=== PATIENT | female | born 1965 | race Caucasian/White ===

== ENCOUNTER 2017-01-26 07:37 | Emergency (ER) | payer OTHER ==
[2017-01-26 07:51] VITALS: BP 118/76
--- NOTE | 2017-01-26 08:05 | UC ---
Respiratory Complaint HPI - HPI Summary HPI Summary: sinus pain and pressure x 1 week + nasal congestion , pnd , cough , chest congestion , chest tightness, cough is dry , pain of her left ribs as she coughs - History of Current Complaint Chief Complaint: UCRespiratory Stated Complaint: COUGH CONGESTION Time Seen by Provider: 01/26/17 07:58 Hx Obtained From: Patient Hx Last Menstrual Period: ablation ?: No Onset/Duration: Gradual Onset, Lasting Weeks - 1, Still Present Timing: Constant Severity Initially: Moderate Severity Currently: Moderate Character: Cough: Nonproductive Aggravating Factors: Exertion, Deep Breaths Alleviating Factors: Nothing Associated Signs And Symptoms: Positive: Dyspnea, Chills, Pleuritic Chest Pain, Wheezing, URI, Nasal Congestion, Sinus Discomfort. Negative: Fever - Allergies/Home Medications Allergies/Adverse Reactions: Allergies Allergy/AdvReac Type Severity Reaction Status Date / Time Penicillins Allergy Unknown Verified 01/26/17 07:42 Reaction Details Home Medications: Home Medications Budesonide/Formote 160/4.5(NF) [Symbicort 160/4.5 (NF)] 2 puff INH BID 01/26/17 [History Confirmed 01/26/17] Sertraline* [Zoloft*] 25 mg PO DAILY 01/26/17 [History Confirmed 01/26/17] PMH/Surg Hx/FS Hx/Imm Hx Cardiovascular History: Hypertension Respiratory History: COPD, Asthma GI/ History: Gastroesophageal Reflux - Surgical History Surgical History: Yes Surgery Procedure, Year, and Place: t/a, ear tubes as child. Pelvic mesh - Family History Known Family History: Positive: Hypertension - Social History Alcohol Use: Occasionally Substance Use Type: None Smoking Status (MU): Heavy Every Day Tobacco Smoker Type: Cigarettes Amount Used/How Often: 1ppd Length of Time of Smoking/Using Tobacco: 30 yrs - Immunization History Most Recent Influenza Vaccination: did not have one this year Review of Systems Constitutional: Fatigue Skin: Negative Eyes: Negative ENT: Sore Throat, Nasal Discharge, Sinus Congestion, Sinus Pain/Tenderness Respiratory: Cough Cardiovascular: Negative Gastrointestinal: Negative Is Patient Immunocompromised?: No All Other Systems Reviewed And Are Negative: Yes Physical Exam Triage Information Reviewed: Yes Appearance: Well-Nourished, Pain Distress Vital Signs: Initial Vital Signs Temp 97.7 F 01/26/17 07:46 Pulse 78 01/26/17 07:46 Resp 18 01/26/17 07:46 BP 118/76 01/26/17 07:46 Pulse Ox 97 01/26/17 07:46 Vital Signs Reviewed: Yes Eyes: Positive: Conjunctiva Clear ENT: Positive: Normal ENT inspection, Hearing grossly normal, Pharynx normal, Nasal drainage, Sinus tenderness Neck: Positive: Supple, Nontender, No Lymphadenopathy Respiratory: Positive: Chest non-tender, Decreased breath sounds. Negative: Crackles, Rhonchi, Stridor, Wheezing Cardiovascular: Positive: RRR, No Murmur, Pulses Normal Skin Exam: Normal UC Diagnostic Evaluation - Laboratory O2 Sat by Pulse Oximetry: 97 Respiratory Course/Dx - Differential Dx/Diagnosis Provider Diagnoses: bronchitis. sinusitis Discharge - Discharge Plan Condition: Stable Disposition: HOME Prescriptions: Azithromycin TAB* [Zithromax TAB (Z-ABIMAEL) 250 mg #6 tabs] 2 tab PO .TODAY, THEN 1 DAILY #1 abimael Benzonatate [TESSALON 200 MG CAP] 200 mg PO TID #21 cap predniSONE TAB* [Deltasone TAB*] 40 mg PO DAILY #10 tab Patient Education Materials: Sinusitis (ED), Acute Bronchitis (ED) Forms: *Work Release Referrals: Yadi Horn NP [Primary Care Provider] - 5 Days
== END 2017-01-26 08:14 | disposition home or self-care (01) ==
LOC: UCCORT 07:37
DX: J40 Bronchitis, not specified as acute or chronic (principal); J32.9 Chronic sinusitis, unspecified; I10 Essential (primary) hypertension; J44.9 Chronic obstructive pulmonary disease, unspecified; K21.9 Gastro-esophageal reflux disease without esophagitis; Z88.0 Allergy status to penicillin; F17.210 Nicotine dependence, cigarettes, uncomplicated
CPT/HCPCS: 99212; G0463

== ENCOUNTER 2017-03-09 07:12 | Emergency (ER) | payer OTHER ==
[2017-03-09 07:30] VITALS: BP 129/81
--- NOTE | 2017-03-09 07:46 | ED ---
Throat Pain/Nasal Congestion - HPI Summary HPI Summary: 52 yr old female with the complaint of bilateral maxillary and frontal sinus pressure pain and drainage. She also has bilateral ear pain. Onset over the past week. The patient has recently been treated for sinusitis in January with zithromax. It got better for a while, but she has been exposed to more infectious diseases at work, and now has yellow drainage sinuses, and pressure after a week of symptoms.. - History of Current Complaint Chief Complaint: UCRespiratory Time Seen by Provider: 03/09/17 07:25 - Allergies/Home Medications Allergies/Adverse Reactions: Allergies Allergy/AdvReac Type Severity Reaction Status Date / Time Penicillins Allergy Unknown Verified 03/09/17 07:19 Reaction Details PMH/Surg Hx/FS Hx/Imm Hx Cardiovascular History: Reports: Hx Hypertension Respiratory History: Reports: Hx Asthma, Hx Chronic Obstructive Pulmonary Disease (COPD) - Surgical History Surgery Procedure, Year, and Place: t/a, ear tubes as child. Pelvic mesh Infectious Disease History: No Infectious Disease History: Denies: Traveled Outside the [place] in Last 30 Days - Family History Known Family History: Positive: Hypertension - Social History Occupation: Employed Full-time Alcohol Use: Occasionally Substance Use Type: Reports: None Smoking Status (MU): Heavy Every Day Tobacco Smoker Type: Cigarettes Amount Used/How Often: 1ppd Length of Time of Smoking/Using Tobacco: 30 yrs Review of Systems Positive: Chills Positive: Ear Ache, Nasal Discharge, Other - sinus pressure Positive: Cough All Other Systems Reviewed And Are Negative: Yes Physical Exam Triage Information Reviewed: Yes Vital Signs On Initial Exam: Initial Vitals Temp Pulse Resp BP Pulse Ox 98 F 87 18 129/81 95 03/09/17 07:21 03/09/17 07:21 03/09/17 07:21 03/09/17 07:21 03/09/17 07:21 Vital Signs Reviewed: Yes Appearance: Positive: Well-Appearing, No Pain Distress Skin: Positive: Warm, Skin Color Reflects Adequate Perfusion Head/Face: Positive: Normal Head/Face Inspection Eyes: Positive: EOMI ENT: Positive: Normal ENT inspection, Pharynx normal, Pharyngeal erythema, TM dull, TM red, Sinus tenderness Neck: Positive: Nontender Respiratory/Lung Sounds: Positive: Clear to Auscultation, Breath Sounds Present Cardiovascular: Positive: RRR. Negative: Murmur Abdomen Description: Positive: Nontender Musculoskeletal: Positive: Strength/ROM Intact Neurological: Positive: Sensory/Motor Intact, Alert, Oriented to Person Place, Time, CN Intact II-III Psychiatric: Positive: Normal - Juanita Coma Scale Best Eye Response: 4 - Spontaneous Best Motor Response: 6 - Obeys Commands Best Verbal Response: 5 - Oriented Diagnostics - Vital Signs Vital Signs Temp Pulse Resp BP Pulse Ox 03/09/17 07:21 98 F 87 18 129/81 95 - Laboratory Lab Statement: Any lab studies that have been ordered have been reviewed, and results considered in the medical decision making process. EENT Course/Dx - Course Course Of Treatment: 52 yr old female with sinusitis/OM. She states she takes the erythromycin family of drugs well, and that is what is usually given her. Will Rx Biaxin. - Diagnoses Provider Diagnoses: Sinusitis, Otitis media Discharge - Discharge Plan Condition: Good Disposition: HOME Prescriptions: Clarithromycin TAB* [Biaxin 500 MG TAB*] 500 mg PO BID #20 tab Patient Education Materials: Sinusitis (ED), Otitis Media (ED) Forms: *Work Release Referrals: Yadi Horn NP [Primary Care Provider] - 2 Days
== END 2017-03-09 07:49 | disposition home or self-care (01) ==
LOC: UCCORT 07:12
DX: J32.9 Chronic sinusitis, unspecified (principal); H66.93 Otitis media, unspecified, bilateral; Z88.0 Allergy status to penicillin; I10 Essential (primary) hypertension; J44.9 Chronic obstructive pulmonary disease, unspecified; F17.210 Nicotine dependence, cigarettes, uncomplicated
CPT/HCPCS: 99212; G0463

== ENCOUNTER 2017-08-17 08:25 | Emergency (ER) | payer OTHER ==
[2017-08-17 08:40] VITALS: BP 124/79
[2017-08-17] MEDS ORDERED: Ketorolac INJ* 30 MG/ML 1 ML VIAL IM ONE (08:57)
--- NOTE | 2017-08-17 09:03 | UC ---
Elbow Pain - HPI Summary HPI Summary: 52 yo female bumped her left elbow a few days ago she describes injury as trivial now with about 24 hour hx of progressively worsening pain and swelling - History of Current Complaint Chief Complaint: UCUpperExtremity Stated Complaint: LEFT ELBOW INJURY Time Seen by Provider: 08/17/17 08:53 Hx Obtained From: Patient Hx Last Menstrual Period: ablation Onset/Duration: Days Severity Initially: Mild Severity Currently: Severe Pain Intensity: 8 Pain Scale Used: 0-10 Numeric Location Of Pain: Is Discrete @ - olecranon, Radiates To - left hand Character: Dull, Aching, Throbbing Aggravating Factor(s): Movement, Other - touch Alleviating Factor(s): Rest Associated Signs And Symptoms: Positive: Swelling - Allergies/Home Medications Allergies/Adverse Reactions: Allergies Allergy/AdvReac Type Severity Reaction Status Date / Time Penicillins Allergy Unknown Verified 08/17/17 08:37 Reaction Details Home Medications: Home Medications Fluticasone-Salmeterol 250-50* [Advair Diskus 250-50*] 1 puff PO BID 08/17/17 [ History Confirmed 08/17/17] PMH/Surg Hx/FS Hx/Imm Hx Previously Healthy: Yes Endocrine History: Dyslipidemia Cardiovascular History: Hypertension - Surgical History Surgical History: Yes Surgery Procedure, Year, and Place: t/a, ear tubes as child. Pelvic mesh. carpal tunnel x3 - Family History Known Family History: Positive: Hypertension - Social History Alcohol Use: Occasionally Substance Use Type: None Smoking Status (MU): Heavy Every Day Tobacco Smoker Type: Cigarettes Amount Used/How Often: less than 1 PPD Length of Time of Smoking/Using Tobacco: 30 yrs Household Exposure Type: Cigarettes - Immunization History Most Recent Influenza Vaccination: did not have one this year Review of Systems Constitutional: Negative Skin: Negative Eyes: Negative ENT: Negative Respiratory: Negative Cardiovascular: Negative Gastrointestinal: Negative Genitourinary: Negative Motor: Negative Neurovascular: Negative Musculoskeletal: Arthralgia Neurological: Negative Psychological: Negative Is Patient Immunocompromised?: No All Other Systems Reviewed And Are Negative: Yes Physical Exam Triage Information Reviewed: Yes Appearance: Well-Appearing, No Pain Distress, Well-Nourished Vital Signs: Initial Vital Signs Temp 98.3 F 08/17/17 08:32 Pulse 89 08/17/17 08:32 Resp 16 08/17/17 08:32 BP 124/79 08/17/17 08:32 Pulse Ox 98 08/17/17 08:32 Eyes: Positive: Conjunctiva Clear ENT: Positive: Hearing grossly normal. Negative: Nasal drainage, TMs normal, Trismus, Muffled voice, Hoarse voice Neck: Positive: Supple Respiratory: Positive: Lungs clear, Normal breath sounds, No respiratory distress, No accessory muscle use Cardiovascular: Positive: RRR, No Murmur Musculoskeletal: Positive: ROM Limited @ - left elbow, Edema @ - swollen and tender over left olecranon/warm/skin intact Neurological: Positive: Alert Psychological Exam: Normal Skin Exam: Normal Diagnostics - Radiology No standard instances Xray Interpretation: Positive (See Comments) - small ant fat pad/no fx noted Elbow Pain Course/Dx - Differential Dx/Diagnosis Provider Diagnoses: left olcranon bursitis Discharge - Sign-Out/Discharge Documenting (check all that apply): Discharge/Admit/Transfer - Discharge Plan Condition: Stable Disposition: HOME Patient Education Materials: Elbow Bursitis (ED) Forms: *Work Release Referrals: Althea Lemons PA [Primary Care Provider] - Additional Instructions: I suggest you see an orthopedist as planned take copies of films continue ibuprofen - Billing Disposition and Condition Condition: STABLE Disposition: Home
--- NOTE | 2017-08-17 09:21 | RAD ---
Indication: Elbow injury. 4 views of left elbow demonstrates no fracture. Anterior fat pad sign is noted but this appears to be within normal limits. No definite fracture is noted. IMPRESSION: No definite fracture of the left elbow is noted.
== END 2017-08-17 09:38 | disposition home or self-care (01) ==
LOC: UCCORT 08:25
DX: M70.22 Olecranon bursitis, left elbow (principal); Y93.9 Activity, unspecified; I10 Essential (primary) hypertension; E78.5 Hyperlipidemia, unspecified
CPT/HCPCS: 96372; 99211; G0463; J1885

== ENCOUNTER 2017-12-09 08:00 | Emergency (ER) | payer OTHER ==
[2017-12-09 08:20] VITALS: BP 125/82
--- NOTE | 2017-12-09 08:41 | UC ---
FLU HPI - HPI Summary HPI Summary: Patient presents to urgent care reporting at 6:00 this morning she "felt like she got hit by a truck ". Patient reports body aches. Tactile fever. Congestion. Fatigue. Patient states a coworker had similar symptoms in the last 5 days a work. Patient has nausea vomiting. Patient cut the flu vaccine September. Patient has shortness of breath. Patient has not taken any antipyretics [id number] medication. Patient does have a history of asthma and has inhaler as well as a bladder home. Patient has not been wheezing or coughing and has not used it. Patient does smoke half pack of cigarettes a day. Pt went to work this am but left and came here Patient's medications reviewed this visit. - History of Current Complaint Chief Complaint: UCGeneralIllness Stated Complaint: ACHY SORE THROAT CHILLS HEAD Time Seen by Provider: 12/09/17 08:34 Hx Obtained From: Patient Hx Last Menstrual Period: ablation ?: No Onset/Duration: Sudden Onset Severity Currently: Moderate Severity Initially: Moderate Pain Intensity: 3 - Allergy/Home Medications Allergies/Adverse Reactions: Allergies Allergy/AdvReac Type Severity Reaction Status Date / Time Penicillins Allergy Unknown Verified 12/09/17 08:16 Reaction Details PMH/Surg Hx/FS Hx/Imm Hx Previously Healthy: Yes Endocrine History: Dyslipidemia Cardiovascular History: Hypertension - Surgical History Surgical History: Yes Surgery Procedure, Year, and Place: t/a, ear tubes as child. Pelvic mesh. carpal tunnel x3 - Family History Known Family History: Positive: Hypertension - Social History Occupation: Employed Full-time Alcohol Use: Occasionally Substance Use Type: None Smoking Status (MU): Heavy Every Day Tobacco Smoker Type: Cigarettes Amount Used/How Often: less than 1 PPD Length of Time of Smoking/Using Tobacco: 30 yrs Household Exposure Type: Cigarettes - Immunization History Most Recent Influenza Vaccination: did not have one this year Review of Systems Constitutional: Fever - tactile, Fatigue ENT: Nasal Discharge, Sinus Congestion Respiratory: Cough All Other Systems Reviewed And Are Negative: Yes Physical Exam - Summary Physical Exam Summary: Vital Signs Reviewed: Yes A+Ox3, no distress, tired appearing Eyes: Conjunctiva Clear, NASH. EOM intact and full ENT: Hearing grossly normal TM x 2 clear, turbinates inflammed and boggy, + PND Y, mmoist, uvula midline, no exudate, no erythema Neck: Positive: Supple Respiratory: Positive: No respiratory distress, No accessory muscle use + CTA throughout no w/r no increased WOB Cardiovascular: RRR nl s1, s2 no m/r CBT <2 sec abd soft + BS nt/nd no guarding, no distension Musculoskeletal Exam: ZHU x 4 without difficulty Strength Intact, ROM Intact Neurological: Positive: Alert, + sensation throughout Psychological: Positive: Normal Response To Family Skin: Positive: no rash, no ecchymosis Triage Information Reviewed: Yes Vital Signs: Initial Vital Signs Temp 98.1 F 12/09/17 08:17 Pulse 87 12/09/17 08:17 Resp 16 12/09/17 08:17 BP 125/82 12/09/17 08:17 Pulse Ox 96 12/09/17 08:17 Flu Course/Dx - Course Course Of Treatment: Patient presents with myalgias, cough, sinus congestion, all which started this morning. Patient denies nausea vomiting. Patient reports tactile temperature. No analgesia taken. No antipyretics taken. Patient was sick contact at work with similar. Patient does have a history of asthma but currently no shortness of breath or wheezing. Patient's flu is negative. Discussed with patient symptomatically care. Work note given. Return precautions given patient states she has plenty of her albuterol as well as her MDI. Patient comfortable and agreement with plan. Patient given a work note. - Differential Dx/Diagnosis Provider Diagnoses: vrial syndrome Discharge - Sign-Out/Discharge Documenting (check all that apply): Patient Departure All imaging exams completed and their final reports reviewed: No Studies - Discharge Plan Condition: Stable Disposition: HOME Prescriptions: Mometasone NASAL (NF) [Nasonex (NF)] 1 spray .SEE ORDER DAILY #1 nasal.spr Patient Education Materials: Viral Syndrome (ED) Forms: *Gen. Provider Communication, *Work Release Referrals: Althea Lemons PA [Primary Care Provider] - Additional Instructions: - Stay well hydrated. Drink plenty of non-alcoholic, non-caffinated beverages. - Alternate ibuprofen (Advil, Motrin) 600mg and Tylenol 1000mg every 3 hours for pain or fever. Take with food. Do NOT take for more than 4-5 days. - These infections are spread by secretions - do NOT share eating or drinking utensils - clean items you share with other people such as cell phones, computer mouse, TV remote, computer tablets,etc. Once you start to feel better, change your toothbrush and your pillowcase. - get plenty of restful sleep - humidify the air in the room where you sleep - boil water, run a hot steam shower, vaporizer, cups of water by heat register - okay to take over the counter decongestant and cough medication - use your nasal spray as instructed - use your inhaler or nebulizer as needed for cough or wheeze - contact your doctor or return with questions or concerns - Billing Disposition and Condition Condition: STABLE Disposition: Home
== END 2017-12-09 09:13 | disposition home or self-care (01) ==
LOC: UCCORT 08:00
DX: B34.9 Viral infection, unspecified (principal); F17.210 Nicotine dependence, cigarettes, uncomplicated; I10 Essential (primary) hypertension; E78.5 Hyperlipidemia, unspecified; Z88.0 Allergy status to penicillin; J45.909 Unspecified asthma, uncomplicated
CPT/HCPCS: 99212; G0463

== ENCOUNTER 2017-12-29 07:22 | Emergency (ER) | payer OTHER ==
--- OUTSIDE RECORDS SUMMARY | 2017-12-29 07:31 | XMS REPORT ---
:1965 External Reference #:[id number] Author Organization [facility] 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 Althea Lemons PA Primary Care Physician Unavailable Payers Type Date Identification Numbers Payment Provider Subscriber Commercial Policy Number: [id number] Suryashandarylee Sethi Lebron PayID: [id number] [address] [place] [address] Problems Date Description Provider Status Onset: 05/20/2016 Chronic obstructive lung disease Vladimir Horn FNP Active Onset: 11/17/2014 Blood glucose abnormal Vladimir Horn FNP Active Note: A1C 6.6 01/2013; 6.2 on repeat Onset: 10/31/2010 Essential hypertension Dee Denis NP Active Onset: 10/31/2010 Pure hypercholesterolemia Dee Denis NP Active Onset: 04/17/2011 Excessive and frequent menstruation Dee Denis NP Active Onset: 04/17/2011 Deficiency anemias Dee Denis NP Active Onset: 04/17/2011 Tobacco user Dee Denis NP Active Onset: 05/18/2017 Acute maxillary sinusitis Althea Lemons PA Active Onset: 05/18/2017 Chronic obstructive pulmonary disease w Althea Lemons PA Active (acute) exacerbation Onset: 05/25/2017 Impacted cerumen Althea Lemons PA Active Family History Date Family Member(s) Problem(s) Comments : (age 55 Years) Father due to Heart Attack Father Heart Attack 55 Mother Emphysema Mother Cervical Cancer : (age 56 Years) Paternal Grandmother due to Heart Attack Social History Type Date Description Comments Marital Status Lives With Home Environment Lives With spouse Diet Patient follows no dietary restrictions 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 Right-handed Cigarette Use Current Cigarette Smoker 1 Pack Daily ETOH Use Occasionally consumes alcohol Recreational Drug Use Never Used Drugs Smoking Heavy tobacco smoker (more than 10 cigarettes/day) Daily Caffeine Current Caffeine User coffee Exercise Type/Frequency Exercises regularly Allergies, Adverse Reactions, Alerts Date Description Reaction Status Severity Comments 08/01/2014 Penicillin active 05/04/2017 Penicillins active Medications Medication Date Status Form Strength Qnty SIG Indications Ordering Provider Hydrochlorothiazid 05/18 Active Tablets 25mg 90tab 1 tab by Liv s mouth Pushpa, every day M.D. Albuterol Sulfate 03/11 Active Nebulizer (2.5mg/3M 150ml nebulized J44.1 Liv L) 0.083% every 4 Pushpa, hours as M.D. needed Advair Diskus 11/12 Active Aerosol 250-50mcg 3unit 0ne puff Liv /2016 /Dose s twice a Pushpa, day - M.D. Lovastatin 07/01 Active Tablets 40mg 180ta take 2 J44.9 Benton, bs tablets MD Annia daily F17.210 Ventolin HFA 08/01/2014 Active Aerosol 108(90Base) 1units 2 puffs by satish Peck/Act mouth every Pushpa, 4 hours as M.D. needed Sertraline HCL 08/19/2012 Active Tablets 50mg 90tabs take 1 yola Peck, daily M.D. Buspirone HCL 08/13/2012 Active Tablets 10mg 180tabs take 1 yola Bhardwaj, twice a day Omeprazole Active Capsules DR 20mg 180caps take 1 Benton capsule Annia, twice a day Levalbuterol Active Nebulizer 1.25mg/0.5ML use one Unknown HCL vial in nebulizer every 6 hours as needed for sob/wheezin gGonsalo Diflucan 10/14/2017 Hx Tablets 150mg 2tabs 1 tab by Benton, - mouth Annia, 10/21/2017 today. winter TOUSSAINT repeat in 1 week if needed Shingrix 10/06/2017 Hx Suspension 50mcg 1units administer Z23 Liv Rec vaccine as benji Barrow. w Viet repeat dose in 2-6 months Zyrtec Allergy 09/23/2017 Hx Capsules 10mg 30caps 1 by mouth Jan30Gonsalo Peck, every day 9 Viet Barrow Benzonatate 09/23/2017 Hx Capsules 200mg 30caps 1 tab by Jan06Gonsalo Peck, - mouth three 9 , 10/03/2017 times a day M.D. Diclofenac 08/20/[address] 75mg 60tabs take 1 Pompo, Sodium tablet by Cristofer, mouth twice M.D. daily with food Ciprodex 07/29/2017 Hx Suspension 0.3-0.1% 7.500ml 4 drops Rosalie Peck, - left ear , 09/23/2017 twice daily M.D. for 7 days. Cefdinir 07/29/2017 Hx Capsules 300mg 20caps 1 tab by Rosalie Peck, - mouth twice , 08/08/2017 a day M.D. Doxycycline 06/17/2017 Hx Tablets 100mg 20tabs Take 1 Jan01Gonsalo Peck Hyclate - tablet by , 06/27/2017 mouth every M.D. 12 hours for 10 days for infection Methylpredniso 06/17/2017 Hx TBPK 4mg 21units take Jan01Gonsalo Peck lone - tablets as 06/22/2017 directed-do M.D. se pack Tussin Cough 06/17/2017 Hx Syrup 15mg/5ML 118ml Take 10 ml Jan01Gonsalo Peck, - by mouth , 06/23/2017 every 8 M.D. hours as needed for cough Benzonatate 06/09/2017 Hx Capsules 200mg 30caps 1 tab by Jan06Gonsalo Peck, - mouth three 9 , 06/17/2017 times a day M.D. Nicoderm CQ 05/11/2017 Hx Patches 14mg/24HR 14units apply patch F17. Liv, - 24HR to skin 210 Pushpa, 09/23/2017 daily. M.D. remove each night at bedtime and reapply in the am. Cefdinir 05/11/2017 Hx Capsules 300mg 20caps 1 tab by Jasmina Peck, - mouth twice 00 Pushpa, 05/21/2017 a day M.D. Medrol 05/11/2017 Hx TBPK 4mg 21units take as Nick Peck - directed Pushpa, 05/16/2017 M.D. Diflucan 03/27/2017 Hx Tablets 150mg 2tabs 1 tab by Liv, - mouth Pushpa, 04/03/2017 today. may M.D. repeat in 1 week if needed Cefdinir 03/23/2017 Hx Capsules 300mg 20caps 1 tab by Nick Peck, - mouth twice 1 Pushpa, 04/02/2017 a day M.D. Medrol 03/23/2017 Hx TBPK 4mg 21units take as Nick Peck - directed Pushpa, 03/28/2017 M.D. Prednisone 03/11/2017 Hx Tablets 10mg 21tabs start at 6 Jan44Gonsalo Horn, - tabs by 1 Yadi 03/16/2017 mouth every joy, day and [employer] decrease by one tab each day until gone Nicotine Step 03/11/2017 Hx Patches 21mg/24HR 28units one patch F17. Justina, 1 - 24HR on dry 218 Yadi 06/29/2017 hairless joy, skin of [employer] upper arms, back or abdomen daily Levalbuterol 03/11/2017 Hx Nebulizer 1.25mg/3ML 144ml one via Nick Horn, HCL - nebulizer 1 Yadi 04/20/2017 every 4-6 joy, hours as [employer] needed cough/sob (in place of Albuterol if covered by insurance) Benzonatate 02/06/2017 Hx Capsules 200mg 30caps one tablet R05 Liv, - by mouth Pushpa, 04/20/2017 every 8 M.D. hours as needed cough Lisinopril 2017 Hx Tablets 20mg 30tabs 1 by mouth Justina, - every day Yadi 02/06/2017 joy, [employer] Zithromax 11/30/2015 Hx Tablets 250mg 6tabs take 2 tabs J01. Clune, - by mouth on 80 [facility] 12/05/2015 day 1 then [place], 1 tab by [facility] mouth qddays 2-5 Fluticasone 07/11/2015 Hx Suspension 50mcg/Act 6units Use 2 Clune, Propionate - Sprays In [facility] 11/30/2015 Each [place], Nostril [facility] Twice A Day Lovastatin 07/02/2015 Hx Tablets 40mg 90tabs 1 by mouth Clune, - every day [facility] 07/02/2015 [place], [facility] Atorvastatin 03/28/2015 Hx Tablets 40mg 90tabs 1 by mouth Clune, Calcium - every day [facility] 07/02/2015 *[address] [place], of [facility] lovastatin* Nitrofurantoin 11/20/2014 Hx Capsules [facility]mg [facility] [place] [facility] mouth twice [facility] 12/01/2014 a day x 10 [place], days [facility] Diflucan 11/10/2014 Hx Tablets 150mg 1tabs take 1 by Clune, - mouth [facility] 03/14/2015 [place], [facility] Mupirocin 08/03/2014 Hx Cream 2% [facility]gm [facility] Cal[facility] - affected [facility] 03/14/2015 area twice [place], daily for 2 [facility] weeks. Loratadine 08/01/2014 Hx Tablets 10mg 90tabs 1 by mouth [facility] - [facility] day [facility] 11/17/2014 [facility] Symbicort 02/10/2014 Hx Aerosol 160-4.5mcg/A 18gm 1 puff [place], - ct twice a day [facility] 11/12/2016 [facility] Nystatin 05/30/2013 Hx Suspension 904084Tqbn/M 360unit 5 ml librado Horton, - L s and swallow Charlott 08/01/2014 four times MD mona a day until resolved. Use as denture soak once a day Ventolin HFA 08/09/2012 Hx Aerosol 108mcg/Act 1units 2 puffs Clune, - every 4-6 [facility] 08/01/2014 hours as [place], needed [employer] Flonase 03/15/2012 Hx Suspension 50mcg/Act 16units spray two Liv, sprays in Pushpa, each M.D. 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 Lovastatin Hx Tablets 40mg 30tabs take one Clune, - tablet by Yadi 03/28/2015 mouth every joy, day [employer] Hydrochlorothi Hx Tablets 50mg 90tabs Take 1 Clune, azide - Tablet Yadi 05/18/2017 Daily joy, [employer] Clarithromycin Hx Tablets 500mg Claus, - Perez 04/20/2017 Viet Montoya Cefdinir Hx Capsules 300mg Cristo, - Althea, 05/25/2017 PA Medications Administered in Office Medication Date Status Form Strength Qnty SIG Indications Ordering Provider Depomedrol Administered Injection Bergeron, 40mg/1cc 018 Trisha Del Rosario [facility] Immunizations CPT Code Status Date Vaccine Lot # U-Flu Given 10/06/2017 Influenza,Unspecified [id number] Given 10/06/2017 Influenza Virus Vaccine, Quadrivalent, 36 Mos+, [id number] .[id number] Given 10/06/2017 Pneumococcal Conjugate Vaccine 13 Valent For [id number] Intramuscular Use [id number] Given 10/06/2017 Pneumococcal Conjugate Vaccine 13 Valent For Intramuscular Use [id number] Given 11/17/2014 Influenza Vaccine (Fluzone) Age 3 And Older [id number] Given 06/16/2011 Tdap injection Vital Signs Date Vital Result Comment 12/28/2017 BP Systolic Sitting Left Arm 130 mmHg BP Diastolic Sitting Left Arm 82 mmHg Heart Rate 98 /min Respiratory Rate 18 /min Height 67 inches 5'7" Weight 203.00 lb BMI (Body Mass Index) 31.8 kg/m2 BSA (Body Surface Area) 2.04 m2 [place] body weight in kilograms 61 O2 % BldC Oximetry 94 % 10/06/2017 BP Systolic Sitting Left Arm 118 mmHg BP Diastolic Sitting Left Arm 80 mmHg Body Temperature 98.4 F Heart Rate 98 /min Weight 203.25 lb O2 % BldC Oximetry 94 % 09/23/2017 BP Systolic Sitting Right Arm 120 mmHg BP Diastolic Sitting Right Arm 84 mmHg Body Temperature 97.7 F Heart Rate 94 /min Weight 202.25 lb O2 % BldC Oximetry 93 % 08/28/2017 BP Systolic Sitting Left Arm 131 mmHg BP Diastolic Sitting Left Arm 90 mmHg Body Temperature 97.3 F Heart Rate 89 /min Respiratory Rate 18 /min Height 66.5 inches 5'6.50" Weight 201.00 lb BMI (Body Mass Index) 32.0 kg/m2 BSA (Body Surface Area) 2.02 m2 [place]ford body weight in kilograms 60 O2 % BldC Oximetry 92 % 08/20/2017 BP Systolic 133 mmHg BP Diastolic 86 mmHg Body Temperature 97.9 F Heart Rate 84 /min Respiratory Rate 16 /min Height 66.5 inches 5'6.50" Weight 206.00 lb BMI (Body Mass Index) 32.7 kg/m2 BSA (Body Surface Area) 2.04 m2 [place]ford body weight in kilograms 60 O2 % BldC Oximetry 94 % room air Pain Level 7 07/29/2017 BP Systolic Sitting Right Arm 112 mmHg BP Diastolic Sitting Right Arm 68 mmHg Body Temperature 97.9 F Heart Rate 100 /min Weight 204.38 lb O2 % BldC Oximetry 97 % 06/29/2017 BP Systolic 122 mmHg BP Diastolic 80 mmHg Body Temperature 97.3 F Heart Rate 98 /min Respiratory Rate 18 /min Height 67 inches 5'7" Weight 205.00 lb BMI (Body Mass Index) 32.1 kg/m2 BSA (Body Surface Area) 2.04 m2 [place]ford body weight in kilograms 61 O2 % BldC Oximetry 91 % 06/17/2017 BP Systolic Sitting Left Arm 140 mmHg BP Diastolic Sitting Left Arm 78 mmHg Body Temperature 98.7 F Heart Rate 117 /min Weight 208.25 lb O2 % BldC Oximetry 93 % 06/09/2017 BP Systolic 130 mmHg BP Diastolic 82 mmHg Body Temperature 96.9 F Heart Rate 90 /min Height 67 inches 5'7" Weight 208.00 lb BMI (Body Mass Index) 32.6 kg/m2 BSA (Body Surface Area) 2.06 m2 [place]ford body weight in kilograms 61 O2 % BldC Oximetry 97 % 05/25/2017 BP Systolic Sitting Right Arm 130 mmHg BP Diastolic Sitting Right Arm 82 mmHg Body Temperature 97.4 F Heart Rate 94 /min Weight 203.00 lb O2 % BldC Oximetry 97 % 05/18/2017 BP Systolic Sitting Left Arm 120 mmHg BP Diastolic Sitting Left Arm 64 mmHg Body Temperature 97.7 F Heart Rate 101 /min Weight 204.25 lb O2 % BldC Oximetry 94 % 05/11/2017 BP Systolic Sitting Left Arm 132 mmHg BP Diastolic Sitting Left Arm 74 mmHg Body Temperature 97.3 F Heart Rate 92 /min Weight 206.50 lb O2 % BldC Oximetry 90 % 93 post neb treatment. 04/20/2017 BP Systolic 126 mmHg BP Diastolic 82 mmHg Body Temperature 97.8 F Heart Rate 116 /min Height 67 inches 5'7" Weight 206.00 lb BMI (Body Mass Index) 32.3 kg/m2 BSA (Body Surface Area) 2.05 m2 [place] body weight in kilograms 61 O2 % BldC Oximetry 95 % 03/23/2017 BP Systolic 118 mmHg BP Diastolic 70 mmHg Body Temperature 96.6 F Heart Rate 99 /min Respiratory Rate 18 /min Height 67 inches 5'7" Weight 203.12 lb BMI (Body Mass Index) 31.8 kg/m2 BSA (Body Surface Area) 2.04 m2 [place] body weight in kilograms 61 O2 % BldC Oximetry 92 % 03/16/2017 BP Systolic 142 mmHg BP Diastolic 68 mmHg Body Temperature 97.6 F Heart Rate 104 /min Respiratory Rate 21 /min Height 67 inches 5'7" Weight 198.00 lb BMI (Body Mass Index) 31.0 kg/m2 BSA (Body Surface Area) 2.01 m2 [place] body weight in kilograms 61 O2 % BldC Oximetry 92 % 03/11/2017 BP Systolic Sitting Left Arm 126 mmHg BP Diastolic Sitting Left Arm 76 mmHg Heart Rate 114 /min Respiratory Rate 24 /min Height 67 inches 5'7" Weight 200.00 lb BMI (Body Mass Index) 31.3 kg/m2 BSA (Body Surface Area) 2.02 m2 [place] body weight in kilograms 61 O2 % BldC Oximetry 93 % repeat pulse ox 91 after nebulizer tx 02/06/2017 BP Systolic Sitting Left Arm 120 mmHg BP Diastolic Sitting Left Arm 76 mmHg Body Temperature 98.2 F Heart Rate 92 /min Respiratory Rate 20 /min Height 67 inches 5'7" Weight 204.00 lb BMI (Body Mass Index) 31.9 kg/m2 BSA (Body Surface Area) 2.04 m2 [place] body weight in kilograms 61 O2 % BldC Oximetry 94 % 2017 BP Systolic Sitting Left Arm 140 mmHg BP Diastolic Sitting Left Arm 82 mmHg 10/10/2016 BP Systolic 142 mmHg BP Diastolic 98 mmHg Height 67 inches 5'7" Weight 200.50 lb BMI (Body Mass Index) 31.4 kg/m2 BSA (Body Surface Area) 2.02 m2 [place] body weight in kilograms 61 10/03/2016 BP Systolic 132 mmHg BP Diastolic 88 mmHg Heart Rate 83 /min Height 67 inches 5'7" Weight 199.00 lb BMI (Body Mass Index) 31.2 kg/m2 BSA (Body Surface Area) 2.02 m2 [place] body weight in kilograms 61 11/30/2015 BP Systolic Sitting Left Arm 120 mmHg BP Diastolic Sitting Left Arm 70 mmHg Heart Rate 80 /min Respiratory Rate 17 /min Height 67 inches 5'7" Weight 207.00 lb BMI (Body Mass Index) 32.4 kg/m2 BSA (Body Surface Area) 2.05 m2 [place] body weight in kilograms 61 07/02/2015 BP Systolic 120 mmHg BP Diastolic 78 mmHg Height 70 inches 5'10" Weight 199.38 lb BMI (Body Mass Index) 28.6 kg/m2 BSA (Body Surface Area) 2.08 m2 03/14/2015 BP Systolic Sitting Left Arm 128 mmHg BP Diastolic Sitting Left Arm 76 mmHg Body Temperature 98.9 F Heart Rate 60 /min Respiratory Rate 20 /min Height 67 inches 5'7" Weight 203.00 lb BMI (Body Mass Index) 31.8 kg/m2 BSA (Body Surface Area) 2.04 m2 11/17/2014 BP Systolic 118 mmHg BP Diastolic 76 mmHg Body Temperature 97.9 F Height 67 inches 5'7" Weight 199.38 lb BMI (Body Mass Index) 31.2 kg/m2 BSA (Body Surface Area) 2.02 m2 08/01/2014 BP Systolic Sitting Left Arm 116 mmHg BP Diastolic Sitting Left Arm 68 mmHg Height 67 inches 5'7" Weight 200.00 lb BMI (Body Mass Index) 31.3 kg/m2 BSA (Body Surface Area) 2.02 m2 03/03/2014 BP Systolic 120 mmHg BP Diastolic 74 mmHg Weight 193.00 lb 02/10/2014 BP Systolic 134 mmHg BP Diastolic 80 mmHg Body Temperature 98.7 F Heart Rate 80 /min Respiratory Rate 18 /min Weight 192.00 lb O2 % BldC Oximetry 93 % 05/30/2013 BP Systolic 126 mmHg BP Diastolic 78 mmHg Height 67 inches 5'7" Weight 198.00 lb O2 % BldC Oximetry 95 % on room air 05/19/2013 BP Systolic 118 mmHg BP Diastolic 76 mmHg Body Temperature 98.4 F Height 67 inches 5'7" Weight 188.00 lb O2 % BldC Oximetry 94 % 05/06/2013 BP Systolic 110 mmHg BP Diastolic 70 mmHg Body Temperature 98.5 F Heart Rate 80 /min Height 67 inches 5'7" Weight 191.00 lb O2 % BldC Oximetry 95 % 05/02/2013 BP Systolic 120 mmHg BP Diastolic 80 mmHg Body Temperature 99.2 F Heart Rate 88 /min Height 67 inches 5'7" Weight 188.00 lb O2 % BldC Oximetry 92 % 03/04/2013 BP Systolic 124 mmHg BP Diastolic 72 mmHg Height 67 inches 5'7" Weight 193.00 lb 02/25/2013 BP Systolic 140 mmHg BP Diastolic 84 mmHg Body Temperature 98.3 F Heart Rate 76 /min Height 67 inches 5'7" Weight 190.00 lb O2 % BldC Oximetry 98 % 02/14/2013 BP Systolic 140 mmHg BP Diastolic 84 mmHg Body Temperature 97.9 F Heart Rate 80 /min Height 67 inches 5'7" Weight 189.00 lb O2 % BldC Oximetry 96 % 02/11/2013 BP Systolic 130 mmHg BP Diastolic 82 mmHg Body Temperature 98.6 F Heart Rate 80 /min Height 67 inches 5'7" Weight 187.00 lb 02/11/2013 O2 % BldC Oximetry 96 % 11/26/2012 BP Systolic 124 mmHg BP Diastolic 78 mmHg Body Temperature 98.6 F Height 67 inches 5'7" Weight 189.00 lb 11/17/2012 Height 67 inches 5'7" Weight 189.00 lb 11/12/2012 BP Systolic 132 mmHg BP Diastolic 72 mmHg Height 67 inches 5'7" Weight 193.00 lb 09/03/2012 BP Systolic 110 mmHg BP Diastolic 68 mmHg Height 67 inches 5'7" Weight 186.00 lb 08/19/2012 BP Systolic 152 mmHg BP Diastolic 88 mmHg Height 67 inches 5'7" Weight 191.00 lb 08/09/2012 BP Systolic 136 mmHg BP Diastolic 86 mmHg Height 67 inches 5'7" Weight 190.00 lb 01/23/2012 BP Systolic 122 mmHg BP Diastolic 70 mmHg Height 67 inches 5'7" Weight 190.00 lb 09/05/2011 BP Systolic 110 mmHg BP Diastolic 76 mmHg Height 67 inches 5'7" Weight 191.00 lb 08/15/2011 BP Systolic 124 mmHg BP Diastolic 70 mmHg Height 67 inches 5'7" Weight 193.00 lb 07/17/2011 BP Systolic 118 mmHg BP Diastolic 72 mmHg Body Temperature 98.3 F Height 67 inches 5'7" Weight 195.00 lb 06/16/2011 BP Systolic 120 mmHg BP Diastolic 80 mmHg Height 66 inches 5'6" Weight 197.00 lb 04/25/2011 BP Systolic 118 mmHg BP Diastolic 78 mmHg Body Temperature 98.0 F Height 67 inches 5'7" Weight 196.00 lb 04/21/2011 BP Systolic 124 mmHg BP Diastolic 76 mmHg Body Temperature 98.6 F Height 67 inches 5'7" Weight 197.00 lb 04/17/2011 BP Systolic 140 mmHg BP Diastolic 82 mmHg Body Temperature 98.5 F Heart Rate 78 /min Height 67 inches 5'7" Weight 199.00 lb 04/03/2011 BP Systolic 124 mmHg BP Diastolic 84 mmHg Body Temperature 98.9 F Height 67 inches 5'7" Weight 199.00 lb 03/03/2011 BP Systolic 124 mmHg BP Diastolic 76 mmHg Body Temperature 98.4 F Height 67 inches 5'7" Weight 203.00 lb 01/01/2011 BP Systolic 118 mmHg BP Diastolic 64 mmHg Body Temperature 98.7 F Heart Rate 80 /min Respiratory Rate 18 /min Height 66 inches 5'6" Weight 195.00 lb 12/25/2010 BP Systolic 120 mmHg BP Diastolic 76 mmHg Body Temperature 98.0 F Heart Rate 92 /min Respiratory Rate 18 /min Height 66 inches 5'6" Weight 198.00 lb 10/31/2010 BP Systolic 120 mmHg BP Diastolic 78 mmHg Body Temperature 98.8 F Height 66 inches 5'6" Weight 196.00 lb Results Test Date Test Result H/L Range Note Rapid Influenza A & B 12/09/2017 Influenza A Molecular NEGATIVE Negative 1 Molecular Influenza B Molecular NEGATIVE Negative CBS W/Automated Diff 10/06/2017 White Blood Count 8.8 K/uL 3.1-10.7 2 Red Blood Count 4.80 M/uL 3.90-5.40 2 Hemoglobin 14.5 gm/dL 11.6-15.8 2 Hematocrit 42.0 % 36.0-46.1 2 Mean Cell Volume 87.5 fl 80.9-99.0 2 Mean Corpuscular HGB 30.2 pg 25.9-32.7 2 Mean Corpuscular HGB Conc 34.5 g/dL High 30.8-34.3 2 Platelet Count 267 K/uL 155-360 2 Red Cell Distri Width SD 41.6 fl 3-47 2 Red Cell Distri Width %CV 13.5 % 11.7-14.4 2 Mean Platelet Volume 9.8 fL 8.9-12.4 2 Neut% 64.0 % 40.4-72.8 2 Lymph % 23.5 % 20.0-42.0 2 Mitchell % 8.9 % 4.3-13.2 2 Eo% 3.1 % 0.0-6.6 2 Bas% 0.5 % 0.0-1.1 2 Neut# 5.60 K/uL 1.8-7.0 2 Lymph # 2.06 K/uL 1.0-4.0 2 Mitchell # 0.78 K/uL 0.3-0.9 2 Eos # 0.27 K/uL 0.0-0.5 2 Baso # 0.04 K/uL 0.0-0.1 2 Comprehensive Metabolic Panel 10/06/2017 Glucose 105 mg/dL 74-106 2 BUN 12 mg/dL 7-18 2 Creatinine 0.7 mg/dL 0.6-1.3 2 Glom Filtration Rate, Estimate >60 mL/min >60 2 If >60 mL/min >60 2, 3 BUN/Creat 17.1 ratio 2 Sodium 137 mmol/L 136-145 2 Potassium 3.5 mmol/L 3.5-5.1 2 Chloride 100 mmol/L 98-107 2 Carbon Dioxide 26 mmol/L 21-32 2 Anion Gap 11 mEq/L 8-16 2 Calcium 9.0 mg/dL 8.5-10.1 2 Total Protein 8.1 g/dL 6.4-8.2 2 Albumin 3.9 g/dL 3.4-5.0 2 Globulin 4.2 g/dL 1.9-4.3 2 Alb/Glob 0.9 ratio 2 Bilirubin,Total 0.2 mg/dL 0.2-1.0 2 Sgot/Ast 31 U/L 15-37 2 SGPT/Alt 46 U/L 12-78 2 Alkaline Phosphatase 88 U/L 45-117 2 Laboratory test finding 10/06/2017 Thyroid Stim Hormone 1.58 uIU/mL 0.30- 4.20 2 Glycohemoglobin A1c 10/06/2017 Glycohemoglobin (A1c) 6.1 % 4.2-6.3 2, 4 eAG 128 mg/dL 2 LDL Cholesterol Profile 10/06/2017 Cholesterol 208 mg/dL High <200 2, 5 Triglycerides 300 mg/dL High <150 2, 6 HDL Cholesterol 43 mg/dL >40 2, 7 LDL-Cholesterol 105 mg/dL < 100 2, 8 Serum or plasma alkaline 04/22/2017 Serum or plasma 92 45-117 phosphatase measurement alkaline phosphatase ( measurement (enzymatic activity/volume) Serum or plasma albumin 04/22/2017 Serum or plasma albumin 4.0 3.4-5.0 measurement measurement (mass/volume) (mass/volume) Serum carbon dioxide 04/22/2017 Serum carbon dioxide 30 21-32 measurement measurement RDW RBC Auto-Rto 04/22/2017 RDW RBC Auto-Rto 14.0 11.7-14.4 RDW RBC Auto 04/22/2017 RDW RBC Auto 44.4 3-47 Potassium SerPl-sCnc 04/22/2017 Potassium SerPl-sCnc 4.0 3.5-5.1 Neutrophils/leuk NFr Bld 04/22/2017 Neutrophils/leuk NFr 64.9 40.4-72.8 Auto Bld Auto Neutrophils # Bld Auto 04/22/2017 Neutrophils # Bld Auto 5.62 1.8-7.0 Monocytes/leuk NFr Bld 04/22/2017 Monocytes/leuk NFr Bld 7.7 4.3-13.2 Auto Auto Lymphocytes/leuk NFr Bld 04/22/2017 Lymphocytes/leuk NFr 24.4 20.0-42.0 Auto Bld Auto Serum or plasma 04/22/2017 Serum or plasma 24 15-37 aspartate aspartate aminotransferase measure aminotransferase measurement (enzymatic activity/volume) Serum or plasma calcium 04/22/2017 Serum or plasma calcium 9.3 8.5-10.1 measurement measurement (mass/volume) (mass/volume) Serum or plasma 04/22/2017 Serum or plasma 0.6 0.6-1.3 creatinine measurement creatinine measurement (mass/volum (mass/volume) Serum or plasma folate 04/22/2017 Serum or plasma folate 19.5 High 3.1- 17.5 measurement measurement (mass/volume) (mass/volume) Serum or plasma glucose 04/22/2017 Serum or plasma glucose 110 High 74- 106 measurement measurement (mass/volume) (mass/volume) Serum or plasma protein 04/22/2017 Serum or plasma protein 8.1 6.4-8.2 measurement measurement (mass/volume) (mass/volume) Serum or plasma total 04/22/2017 Serum or plasma total 0.2 0.2-1.0 bilirubin measurement bilirubin measurement (mass/ (mass/volume) Serum or plasma urea 04/22/2017 Serum or plasma urea 12 7-18 nitrogen measurement nitrogen measurement (mass/vo (mass/volume) Serum or plasma vitamin 04/22/2017 Serum or plasma vitamin 420 193-986 B12 measurement B12 measurement (mass/volu (mass/volume) Serum sodium measurement 04/22/2017 Serum sodium 134 Low 136-145 measurement TSH SerPl-aCnc 04/22/2017 TSH SerPl-aCnc 0.84 0.30-4.20 Vitamin B12 And Folate 04/22/2017 Vitamin B12 420 pg/mL 193-986 9 Folic Acid 19.5 ng/mL High 3.1-17.5 9 Reflex add FT3? Y 9 Reflex add FT4? Y 9 Laboratory test finding 04/22/2017 Vitamin D,1,25 33.1 pg/mL 19.9-79.3 9 , 10 Dihydroxy TSH Reflex FT4 And/Or 04/22/2017 Thyroid Stim Hormone 0.84 uIU/mL 0.30- 4.20 9 FT3 Reflex add FT3? Y 9 Reflex add FT4? Y 9 Comprehensive Metabolic Panel 04/22/2017 Glucose 110 mg/dL High 74-106 9 BUN 12 mg/dL 7-18 9 Creatinine 0.6 mg/dL 0.6-1.3 9 Glom Filtration Rate, Estimate >60 mL/min >60 9 If >60 mL/min >60 9, 11 BUN/Creat 20.0 ratio 9 Sodium 134 mmol/L Low 136-145 9 Potassium 4.0 mmol/L 3.5-5.1 9 Chloride 100 mmol/L 98-107 9 Carbon Dioxide 30 mmol/L 21-32 9 Anion Gap 4 mEq/L Low 8-16 9 Calcium 9.3 mg/dL 8.5-10.1 9 Total Protein 8.1 g/dL 6.4-8.2 9 Albumin 4.0 g/dL 3.4-5.0 9 Globulin 4.1 g/dL 1.9-4.3 9 Alb/Glob 1.0 ratio 9 Bilirubin,Total 0.2 mg/dL 0.2-1.0 9 Sgot/Ast 24 U/L 15-37 9 SGPT/Alt 33 U/L 12-78 9 Alkaline Phosphatase 92 U/L 45-117 9 Reflex add FT3? Y 9 Reflex add FT4? Y 9 CBS W/Automated Diff 04/22/2017 White Blood Count 8.7 K/uL 3.1-10.7 9 Red Blood Count 4.90 M/uL 3.90-5.40 9 Hemoglobin 14.8 gm/dL 11.6-15.8 9 Hematocrit 43.4 % 36.0-46.1 9 Mean Cell Volume 88.6 fl 80.9-99.0 9 Mean Corpuscular HGB 30.2 pg 25.9-32.7 9 Mean Corpuscular HGB Conc 34.1 g/dL 30.8-34.3 9 Platelet Count 276 K/uL 155-360 9 Red Cell Distri Width SD 44.4 fl 3-47 9 Red Cell Distri Width %CV 14.0 % 11.7-14.4 9 Mean Platelet Volume 10.0 fL 8.9-12.4 9 Neut% 64.9 % 40.4-72.8 9 Lymph % 24.4 % 20.0-42.0 9 Mitchell % 7.7 % 4.3-13.2 9 Eo% 2.5 % 0.0-6.6 9 Bas% 0.5 % 0.0-1.1 9 Neut# 5.62 K/uL 1.8-7.0 9 Lymph # 2.11 K/uL 1.0-4.0 9 Mitchell # 0.67 K/uL 0.3-0.9 9 Eos # 0.22 K/uL 0.0-0.5 9 Baso # 0.04 K/uL 0.0-0.1 9 Alt SerPl-cCnc 04/22/2017 Alt SerPl-cCnc 33 12-78 Albumin/Glob SerPl 04/22/2017 Albumin/Glob SerPl 1.0 Anion Gap SerPl-sCnc 04/22/2017 Anion Gap SerPl-sCnc 4 Low 8-16 Automated blood 04/22/2017 Automated blood 0.04 0.0-0.1 basophil count basophil count (count/volume) (count/volume) Automated blood 04/22/2017 Automated blood 0.22 0.0-0.5 eosinophil count eosinophil count Automated blood 04/22/2017 Automated blood 43.4 36.0-46.1 hematocrit (volume hematocrit (volume fraction) fraction) Automated blood 04/22/2017 Automated blood 2.11 1.0-4.0 lymphocyte count lymphocyte count (number/volume) (number/volume) Automated blood 04/22/2017 Automated blood 276 155-360 platelet count platelet count Automated blood 04/22/2017 Automated blood 10.0 8.9-12.4 platelet mean volume platelet mean volume measurement measurement Automated erythrocyte 04/22/2017 Automated erythrocyte 30.2 25.9-32.7 mean corpuscular mean corpuscular hemoglobin hemoglobin (mass per erythrocyte) Automated erythrocyte 04/22/2017 Automated erythrocyte 34.1 30.8-34.3 mean corpuscular mean corpuscular hemoglobin hemoglobin concentration measurement (mass/volume) Automated erythrocyte 04/22/2017 Automated erythrocyte 88.6 80.9-99.0 mean corpuscular mean corpuscular volume volume BUN/Creat SerPl 04/22/2017 BUN/Creat SerPl 20.0 Basophils/leuk NFr 04/22/2017 Basophils/leuk NFr 0.5 0.0-1.1 Bld Auto Bld Auto Blood erythrocytes 04/22/2017 Blood erythrocytes 4.90 3.90-5.40 automated count automated count (number/volume) (number/volume) Blood hemoglobin 04/22/2017 Blood hemoglobin 14.8 11.6-15.8 measurement measurement (mass/volume) (mass/volume) Blood leukocytes 04/22/2017 Blood leukocytes 8.7 3.1-10.7 automated count automated count (number/volume) (number/volume) Globulin Ser 04/22/2017 Globulin Ser 4.1 1.9-4.3 Calc-mCnc Calc-mCnc Eosinophil/leuk NFr 04/22/2017 Eosinophil/leuk NFr 2.5 0.0-6.6 Bld Auto Bld Auto Chloride SerPl-sCnc 04/22/2017 Chloride [facility] 100 98-107 Blood monocytes 04/22/2017 Blood monocytes 0.67 0.3-0.9 automated count automated count (number/volume) (number/volume) LDL Cholesterol 10/03/2016 Cholesterol 230 mg/dL High <200 12, 13 Profile Triglycerides 258 mg/dL High <150 12, 14 HDL Cholesterol 47 mg/dL >40 12, 15 LDL-Cholesterol 131 mg/dL < 100 12, 16 CBS W/Automated Diff 10/03/2016 White Blood Count 9.2 K/uL 3.1-10.7 12 Red Blood Count 4.98 M/uL 3.90-5.40 12 Hemoglobin 15.0 gm/dL 11.6-15.8 12 Hematocrit 43.9 % 36.0-46.1 12 Mean Cell Volume 88.2 fl 80.9-99.0 12 Mean Corpuscular HGB 30.1 pg 25.9-32.7 12 Mean Corpuscular HGB Conc 34.2 g/dL 30.8-34.3 12 Platelet Count 259 K/uL 150-400 12 Red Cell Distri Width SD 44.0 fl 3-47 12 Red Cell Distri Width %CV 13.9 % 11.7-14.4 12 Mean Platelet Volume 9.9 fL 8.9-12.4 12 Neut% 64.7 % 40.4-72.8 12 Lymph % 23.9 % 20.0-42.0 12 Mitchell % 8.8 % 4.3-13.2 12 Eo% 2.3 % 0.0-6.6 12 Bas% 0.3 % 0.0-1.1 12 Neut# 5.94 K/uL 1.8-7.0 12 Lymph # 2.20 K/uL 1.0-4.0 12 Mitchell # 0.81 K/uL 0.3-0.9 12 Eos # 0.21 K/uL 0.0-0.5 12 Baso # 0.03 K/uL 0.0-0.1 12 Glycohemoglobin A1c 10/03/2016 Glycohemoglobin (A1c) 6.1 % 4.2-6.3 12, 17 eAG 128 mg/dL 12 Comprehensive Metabolic Panel 10/03/2016 Glucose 104 mg/dL 74-106 12 BUN 12 mg/dL 7-18 12 Creatinine 0.7 mg/dL 0.6-1.3 12 Glom Filtration Rate, Estimate >60 mL/min >60 12 If >60 mL/min >60 12, 18 BUN/Creat 17.1 ratio 12 Sodium 137 mmol/L 136-145 12 Potassium 3.7 mmol/L 3.5-5.1 12 Chloride 99 mmol/L 98-107 12 Carbon Dioxide 31 mmol/L 21-32 12 Anion Gap 7 mEq/L Low 8-16 12 Calcium 9.0 mg/dL 8.5-10.1 12 Total Protein 8.2 g/dL 6.4-8.2 12 Albumin 4.0 g/dL 3.4-5.0 12 Globulin 4.2 g/dL 1.9-4.3 12 Alb/Glob 1.0 ratio 12 Bilirubin,Total 0.4 mg/dL 0.2-1.0 12 Sgot/Ast 24 U/L 15-37 12 SGPT/Alt 42 U/L 12-78 12 Alkaline Phosphatase 92 U/L 45-117 12 Laboratory test finding 01/15/2015 Vitamin D,1,25 Dihydroxy 39.2 pg/mL 19.9-79.3 19 Microalbumin,Random Urine 8.3 mg/L < 20.0 LDL Cholesterol Profile 01/15/2015 Cholesterol 253 mg/dL High <200 20 Triglycerides 384 mg/dL High <150 21 HDL Cholesterol 41 mg/dL >40 22 LDL-Cholesterol 135 mg/dL < 100 23 Glycohemoglobin A1c 01/15/2015 Glycohemoglobin (A1c) 5.7 % 4.2-6.3 24 eAG 117 mg/dL Comprehensive Metabolic Panel 01/15/2015 Glucose 107 mg/dL High 74-106 BUN 12 mg/dL 7-18 Creatinine 0.7 mg/dL 0.6-1.3 Glom Filtration Rate, Estimate >60 mL/min >60 If >60 mL/min >60 25 BUN/Creat 17.1 ratio Sodium 138 mmol/L 136-145 Potassium 4.0 mmol/L 3.5-5.1 Chloride 102 mmol/L 98-107 Carbon Dioxide 29 mmol/L 21-32 Anion Gap 7 mEq/L Low 8-16 Calcium 9.3 mg/dL 8.5-10.1 Total Protein 7.6 g/dL 6.4-8.2 Albumin 3.9 g/dL 3.4-5.0 Globulin 3.7 g/dL 1.9-4.3 Alb/Glob 1.1 ratio Bilirubin,Total 0.4 mg/dL 0.2-1.0 Sgot/Ast 23 U/L 15-37 SGPT/Alt 44 U/L 12-78 Alkaline Phosphatase 94 U/L 45-117 Affirm 11/17/2014 Trichomonas vaginalis Negative [Negative] Gardnerella vaginalis Negative [Negative] Lynda species Negative [Negative] Laboratory test finding 11/17/2014 Urine Culture See Note 26 LDL Cholesterol Profile 02/21/2014 Cholesterol 233 mg/dL < 200 27 HDL Cholesterol 46 mg/dL > 40 28 LDL-Cholesterol 126 mg/dL < 100 29 Triglycerides 305 mg/dL < 150 30 Glycohemoglobin A1c 02/21/2014 Glycohemoglobin (A1c) 6.2 % 4.2-6.3 31 eAG 131 mg/dL Comprehensive Metabolic Panel 02/21/2014 Alb/Glob 1.1 ratio Albumin 3.9 g/dL 3.4-5.0 Alkaline Phosphatase 89 U/L 45-117 Anion Gap 8 mEq/L 8-16 BUN 14 mg/dL 7-18 BUN/Creat 15.5 ratio Bilirubin,Total 0.3 mg/dL 0.2-1.0 Calcium 9.1 mg/dL 8.5-10.1 Carbon Dioxide 32 mmol/L 21-32 Chloride 102 mmol/L 98-107 Creatinine 0.9 mg/dL 0.6-1.3 Globulin 3.5 g/dL 1.9-4.3 Glom Filtration Rate, Estimate >60 mL/min >60 Glucose 87 mg/dL 74-106 If >60 mL/min >60 32 Potassium 3.8 mmol/L 3.5-5.1 SGPT/Alt 34 U/L 12-78 Sgot/Ast 19 U/L 15-37 Sodium 138 mmol/L 136-145 Total Protein 7.4 g/dL 6.4-8.2 Laboratory test 02/21/2014 Microalbumin,Random Urine < 5.0 mg/L < 20.0 finding Laboratory test 02/04/2013 Hemoglobin A1c 6.6 % High Less than 33 finding 6.0 TSH (Thyroid Stimulating Horm) 1.32 miu/mL 0.34-5.60 CBC Auto Diff 02/04/2013 Abs Basophils 0.1 10^3/uL 0-0.2 Abs Eosinophils 0.2 10^3/uL 0-0.6 Abs Lymphocytes 1.9 10^3/uL 1.0-4.8 Abs Monocytes 0.8 10^3/uL 0-0.8 Abs Neutrophils 4.8 10^3/uL 1.5-7.7 Abs Nucleated RBC 0 10^3/uL Basophil % 1.3 % 0-2 Eosinophil % 2.2 % 0-6 Granulocyte % 62.0 % 38-83 Hematocrit 41 % 35-47 Hemoglobin 14.1 g/dL 12.0-16.0 Lymphocyte % 24.0 % Low 25-47 Mean Corpuscular HGB Conc 34 g/dL 31-36 Mean Corpuscular Hemoglobin 31 pg 27-31 Mean Corpuscular Volume 89 fL 80-97 Mean Platelet Volume 8 um3 7.4-10.4 Monocyte % 10.5 % High 1-9 Nucleated Red Blood Cells % 0 Platelet Count 234 10^3/uL 150-450 Red Blood Count 4.61 10^6/uL 4.0-5.4 Red Cell Distribution Width 13 % 10.5-15 White Blood Count 7.8 10^3/uL 4.8-10.8 Comp Metabolic Panel 02/04/2013 Albumin 4.0 g/dL 3.6-5.4 Albumin/Globulin Ratio 1.5 1-3 Alkaline Phosphatase 78 U/L 30-110 Alt 36 U/L 14-54 Anion Gap 9.0 mmol/L 2-11 Ast 29 U/L 12-42 BUN/Creatinine Ratio 16.7 8-20 Blood Urea Nitrogen 10 mg/dL 6-24 Calcium 9.5 mg/dL 8.1-9.9 Chloride 99 mmol/L Low 101-111 Co2 Carbon Dioxide 29.0 mmol/L 22-32 Creatinine 0.60 mg/dL 0.50-1.40 Egfr 138.4 >60 34 Egfr Non- 107.6 >60 Globulin 2.7 g/dL 2-4 Glucose 91 mg/dL 70-100 Potassium 4.1 mmol/L 3.5-5.0 Sodium 137 mmol/L 133-145 Total Bilirubin 0.6 mg/dL 0.4-1.5 Total Protein 6.7 g/dL 6.2-8.1 Lipid Profile (Trig/Chol/HDL) 02/04/2013 Cholesterol 206 mg/dL High Less than 200 Cholesterol/HDL Ratio 3.6 Average 1-4.44 HDL Cholesterol 57 mg/dL 40-60 35 LDL Cholesterol 120.4 High Less Than 100 36 Triglycerides 143 mg/dL 40-200 Laboratory test finding 11/03/2012 Hemoglobin A1c 6.3 % High Less than 6.0 37 TSH (Thyroid Stimulating Horm) 1.14 miu/mL 0.34-5.60 CBC Auto Diff 11/03/2012 Abs Basophils 0.1 10^3/uL 0-0.2 Abs Eosinophils 0.2 10^3/uL 0-0.6 Abs Lymphocytes 2.3 10^3/uL 1.0-4.8 Abs Monocytes 0.8 10^3/uL 0-0.8 Abs Neutrophils 6.3 10^3/uL 1.5-7.7 Abs Nucleated RBC 0 10^3/uL Basophil % 0.9 % 0-2 Eosinophil % 2.4 % 0-6 Granulocyte % 64.8 % 38-83 Hematocrit 44 % 35-47 Hemoglobin 14.7 g/dL 12.0-16.0 Lymphocyte % 23.3 % Low 25-47 Mean Corpuscular HGB Conc 34 g/dL 31-36 Mean Corpuscular Hemoglobin 30 pg 27-31 Mean Corpuscular Volume 90 fL 80-97 Mean Platelet Volume 8 um3 7.4-10.4 Monocyte % 8.6 % 1-9 Nucleated Red Blood Cells % 0 Platelet Count 265 10^3/uL 150-450 Red Blood Count 4.86 10^6/uL 4.0-5.4 Red Cell Distribution Width 13 % 10.5-15 White Blood Count 9.7 10^3/uL 4.8-10.8 Comp Metabolic Panel 11/03/2012 Albumin 4.1 g/dL 3.6-5.4 Albumin/Globulin Ratio 1.6 1-3 Alkaline Phosphatase 77 U/L 30-110 Alt 42 U/L 14-54 Anion Gap 10.0 mmol/L 2-11 Ast 32 U/L 12-42 BUN/Creatinine Ratio 18.3 8-20 Blood Urea Nitrogen 11 mg/dL 6-24 Calcium 10.2 mg/dL High 8.1-9.9 Chloride 98 mmol/L Low 101-111 Co2 Carbon Dioxide 27.0 mmol/L 22-32 Creatinine 0.60 mg/dL 0.50-1.40 Egfr 139.0 >60 38 Egfr Non- 108.1 >60 Globulin 2.6 g/dL 2-4 Glucose 107 mg/dL High 70-100 Potassium 4.0 mmol/L 3.5-5.0 Sodium 135 mmol/L 133-145 Total Bilirubin 0.6 mg/dL 0.4-1.5 Total Protein 6.7 g/dL 6.2-8.1 Lipid Profile (Trig/Chol/HDL) 11/03/2012 Cholesterol 288 mg/dL High Less than 200 Cholesterol/HDL Ratio 5.2 Average High 1-4.44 HDL Cholesterol 55 mg/dL 40-60 39 LDL Cholesterol 188.0 High Less Than 100 40 Triglycerides 225 mg/dL High 40-200 Laboratory test finding 08/10/2012 Hemoglobin A1c 6.2 % High Less than 6.0 41 TSH (Thyroid Stimulating Horm) 1.37 miu/mL 0.34-5.60 CBC Auto Diff 08/10/2012 Abs Basophils 0 10^3/uL 0-0.2 Abs Eosinophils 0.1 10^3/uL 0-0.6 Abs Lymphocytes 2.2 10^3/uL 1.0-4.8 Abs Monocytes 0.6 10^3/uL 0-0.8 Abs Neutrophils 5.3 10^3/uL 1.5-7.7 Abs Nucleated RBC 0 10^3/uL Basophil % 0.5 % 0-2 Eosinophil % 1.7 % 0-6 Granulocyte % 63.8 % 38-83 Hematocrit 43 % 35-47 Hemoglobin 14.4 g/dL 12.0-16.0 Lymphocyte % 26.6 % 25-47 Mean Corpuscular HGB Conc 33 g/dL 31-36 Mean Corpuscular Hemoglobin 30 pg 27-31 Mean Corpuscular Volume 91 fL 80-97 Mean Platelet Volume 8 um3 7.4-10.4 Monocyte % 7.4 % 1-9 Nucleated Red Blood Cells % 0 Platelet Count 279 10^3/uL 150-450 Red Blood Count 4.78 10^6/uL 4.0-5.4 Red Cell Distribution Width 14 % 10.5-15 White Blood Count 8.4 10^3/uL 4.8-10.8 Comp Metabolic Panel 08/10/2012 Albumin 4.2 g/dL 3.6-5.4 Albumin/Globulin Ratio 1.4 1-3 Alkaline Phosphatase 70 U/L 30-110 Alt 41 U/L 14-54 Anion Gap 8.0 mmol/L 2-11 Ast 31 U/L 12-42 BUN/Creatinine Ratio 15.0 8-20 Blood Urea Nitrogen 9 mg/dL 6-24 Calcium 9.8 mg/dL 8.1-9.9 Chloride 101 mmol/L 101-111 Co2 Carbon Dioxide 29.0 mmol/L 22-32 Creatinine 0.60 mg/dL 0.50-1.40 Egfr 139.0 >60 42 Egfr Non- 108.1 >60 Globulin 3.0 g/dL 2-4 Glucose 98 mg/dL 70-100 Potassium 4.3 mmol/L 3.5-5.0 Sodium 138 mmol/L 133-145 Total Bilirubin 0.6 mg/dL 0.4-1.5 Total Protein 7.2 g/dL 6.2-8.1 Vitamin D, 25 Hydroxy 08/10/2012 25-Hydroxy Vitamin D Total 40 ng/mL 43 25-Hydroxy Vitamin D2 <4.0 ng/mL 25-Hydroxy Vitamin D3 40 ng/mL Lipid Profile (Trig/Chol/HDL) 08/10/2012 Cholesterol 214 mg/dL High Less than 200 Cholesterol/HDL Ratio 3.9 Average 1-4.44 HDL Cholesterol 55 mg/dL 40-60 44 LDL Cholesterol 117.8 High Less Than 100 45 Triglycerides 206 mg/dL High 40-200 Lipid Profile (Trig/Chol/HDL) 01/23/2012 Cholesterol 218 mg/dL High Less than 200 Cholesterol/HDL Ratio 4.2 AVERAGE 1-4.44 HDL Cholesterol 52 mg/dL 40-60 46 LDL Cholesterol 141.0 mg/dL High Less Than 100 47 Triglycerides 125 mg/dL 40-200 Comp Metabolic Panel 01/23/2012 Albumin 4.0 GM/DL 3.6-5.4 Albumin/Globulin Ratio 1.7 1-3 Alkaline Phosphatase 66 U/L 30-110 Alt 30 U/L 14-54 Anion Gap 8.0 mmol/L 2-11 Ast 23 U/L 12-42 BUN/Creatinine Ratio 23.3 High 8-20 Blood Urea Nitrogen 14 mg/dL 6-24 Calcium 9.9 mg/dL 8.1-9.9 Chloride 102 mmol/L 101-111 Co2 Carbon Dioxide 28.0 mmol/L 22-32 Creatinine 0.60 mg/dL 0.50-1.40 Egfr 139.0 >60 48 Egfr Non- 108.1 >60 Globulin 2.4 GM/DL 2-4 Glucose 102 mg/dL High 70-100 Potassium 3.5 mmol/L 3.5-5.0 Sodium 138 mmol/L 133-145 Total Bilirubin 0.6 mg/dL 0.4-1.5 Total Protein 6.4 GM/DL 6.2-8.1 CBC Auto Diff 01/23/2012 Abs Basophils 0.1 10^3/uL 0-0.2 Abs Eosinophils 0.2 10^3/uL 0-0.6 Abs Lymphocytes 2.5 10^3/uL 1.0-4.8 Abs Monocytes 0.7 10^3/uL 0-0.8 Abs Neutrophils 4.4 10^3/uL 1.5-7.7 Abs Nucleated RBC 0 10^3/uL Basophil % 1.0 % 0-2 Eosinophil % 2.6 % 0-6 Granulocyte % 55.8 % 38-83 Hematocrit 41 % 35-47 Hemoglobin 13.6 g/dL 12.0-16.0 Lymphocyte % 31.7 % 25-47 Mean Corpuscular HGB Conc 34 g/dL 31-36 Mean Corpuscular Hemoglobin 31 pg 27-31 Mean Corpuscular Volume 91 fL 80-97 Mean Platelet Volume 8 um3 7.4-10.4 Monocyte % 8.9 % 1-9 Nucleated Red Blood Cells % 0 Platelet Count 258 10^3/uL 150-450 Red Blood Count 4.47 10^6/uL 4.0-5.4 Red Cell Distribution Width 13 % 10.5-15 White Blood Count 7.9 10^3/uL 4.8-10.8 Laboratory test finding 01/23/2012 Hemoglobin A1c 5.9 % Less than 6.0 49 TSH (Thyroid Stimulating Horm) 1.20 MIU/ML 0.34-5.60 Lipid Profile (Trig/Chol/HDL) 09/19/2011 Cholesterol 196 mg/dL Less Than 200 50 Cholesterol/HDL Ratio 5.03 AVERAGE High 1-4.44 High Density Lipoprotein 39 mg/dL Low 40-60 51 Low Density Lipoprotein 116 mg/dL High Less Than 100 52 Triglyceride 205 mg/dL High 40-200 Lipid Profile (Trig/Chol/HDL) 08/18/2011 Cholesterol 223 mg/dL High Less Than 200 53 Cholesterol/HDL Ratio 4.65 AVERAGE High 1-4.44 High Density Lipoprotein 48 mg/dL 40-60 54 Low Density Lipoprotein 119 mg/dL High Less Than 100 55 Triglyceride 281 mg/dL High 40-200 Comp Metabolic Panel 08/18/2011 Albumin 4.1 GM/DL 3.6-5.4 Albumin/Globulin Ratio 1.4 1-3 Alkaline Phosphatase 69 U/L 30-110 Alt (SGPT) 33 U/L 14-54 Anion Gap 8.0 mmol/L 2-11 56 Ast (Sgot) 27 U/L 12-42 BUN 13 mg/dL 6-24 BUN/Creatinine Ratio 18.6 8-20 Bilirubin Total 0.5 mg/dL 0.4-1.5 57 Calcium 9.5 mg/dL 8.1-9.9 Chloride 98 mmol/L Low 101-111 Co2 (Carbon Dioxide) 27.0 mmol/L 22-32 Creatinine 0.7 mg/dL 0.50-1.40 Globulin 2.9 GM/DL 2-4 Glucose 101 mg/dL High 70-100 One Over Creatinine 1.42 Potassium 3.6 mmol/L 3.5-5.0 Sodium 133 mmol/L Low 135-145 Total Protein 7.0 GM/DL 6.2-8.1 eGFR 116.9 > 60 58 eGFR Non- 90.9 > 60 CBC Auto Diff 08/18/2011 Abs Basophils 0 0-0.2 Abs Eosinophils 0.2 0-0.6 Abs Lymphs 2.5 1.0-4.8 Abs Mononuclear 0.7 0-0.8 Absolute Neutrophil Count 6.3 1.5-7.7 Basophil % 0.4 % 0-2 Eosinophil % 1.9 % 0-6 Gran % 65.1 % 38-83 Hematocrit 40 % 35-47 Hemoglobin 14.0 g/dL 12.0-16.0 Lymph % 25.2 % 25-47 Mean Corpuscular HGB Cone 35 g/dL 32-36 Mean Corpuscular Hemoglob 30 pg 27-31 Mean Corpuscular Volume 87 um3 79-97 Mean Platelet Volume 7.9 um3 7.4-10.4 Mononuclear % 7.4 % 1-9 Platelet Count 307 CUMM 150-450 Red Cell Count 4.65 CUMM 4.2-5.4 Redcell Distribution WDTH 15 % 10.5-15 White Blood Count 9.8 CUMM 4.8-10.8 Laboratory test finding 08/18/2011 Hemoglobin A1c 6.3 % High Less Than 6.0 59 Laboratory test finding 05/22/2011 Hemoglobin A1c 6.1 % High Less Than 6.0 60 Comp Metabolic Panel 05/22/2011 Albumin 4.1 GM/DL 3.6-5.4 Albumin/Globulin Ratio 1.3 1-3 Alkaline Phosphatase 65 U/L 30-110 Alt (SGPT) 31 U/L 14-54 Anion Gap 10.0 mmol/L 2-11 61 Ast (Sgot) 26 U/L 12-42 BUN 17 mg/dL 6-24 BUN/Creatinine Ratio 28.3 High 8-20 Bilirubin Total 0.4 mg/dL 0.4-1.5 62 Calcium 9.2 mg/dL 8.1-9.9 Chloride 100 mmol/L Low 101-111 Co2 (Carbon Dioxide) 27.0 mmol/L 22-32 Creatinine 0.6 mg/dL 0.50-1.40 Globulin 3.2 GM/DL 2-4 Glucose 99 mg/dL 70-100 One Over Creatinine 1.66 Potassium 3.9 mmol/L 3.5-5.0 Sodium 137 mmol/L 135-145 Total Protein 7.3 GM/DL 6.2-8.1 eGFR 139.7 > 60 63 eGFR Non- 108.6 > 60 Lipid Profile (Trig/Chol/HDL) 05/22/2011 Cholesterol 234 mg/dL High Less Than 200 64 Cholesterol/HDL Ratio 3.90 AVERAGE 1-4.44 High Density Lipoprotein 60 mg/dL 40-60 65 Low Density Lipoprotein 139 mg/dL High Less Than 100 66 Triglyceride 173 mg/dL 40-200 Vitamin D, 25 Hydroxy 05/22/2011 25-Hydroxy Vitamin D Total 42 ng/mL () 67 25-Hydroxy Vitamin D2 11 ng/mL () 25-Hydroxy Vitamin D3 31 ng/mL () Laboratory test finding 03/27/2011 Hemoglobin A1c 6.3 % High Less Than 6.0 68 TSH 1.65 MIU/ML 0.34-5.60 CBC Auto Diff 03/27/2011 Hematocrit 36 % 35-47 Hemoglobin 12.9 g/dL 12.0-16.0 Mean Corpuscular HGB Cone 36 g/dL 32-36 Mean Corpuscular Hemoglob 29 pg 27-31 Mean Corpuscular Volume 80 um3 79-97 Mean Platelet Volume 8.6 um3 7.4-10.4 69 Platelet Count 270 CUMM 150-450 Red Cell Count 4.51 CUMM 4.2-5.4 Redcell Distribution WDTH 17 % High 10.5-15 White Blood Count 9.8 CUMM 4.8-10.8 Comp Metabolic Panel 03/27/2011 Albumin 4.0 GM/DL 3.6-5.4 Albumin/Globulin Ratio 1.3 1-3 Alkaline Phosphatase 73 U/L 30-110 Alt (SGPT) 32 U/L 14-54 Anion Gap 11.0 mmol/L 2-11 70 Ast (Sgot) 22 U/L 12-42 BUN 10 mg/dL 6-24 BUN/Creatinine Ratio 14.3 8-20 Bilirubin Total 0.6 mg/dL 0.4-1.5 71 Calcium 9.5 mg/dL 8.1-9.9 Chloride 94 mmol/L Low 101-111 Co2 (Carbon Dioxide) 31.0 mmol/L 22-32 Creatinine 0.7 mg/dL 0.50-1.40 Globulin 3.0 GM/DL 2-4 Glucose 91 mg/dL 70-100 One Over Creatinine 1.42 Potassium 3.6 mmol/L 3.5-5.0 Sodium 136 mmol/L 135-145 Total Protein 7.0 GM/DL 6.2-8.1 eGFR 116.9 > 60 72 eGFR Non- 90.9 > 60 Manual Differential 03/27/2011 Absolute Neutrophil Count 6.5 Anisocytosis 1+ Basophil 1 % 0-2 Lymphocyte 30 % 25-47 Monocyte 2 % 0-13 Polysegmented Neutrophil 67 % 38-83 Lipid Profile (Trig/Chol/HDL) 03/27/2011 Cholesterol 244 mg/dL High Less Than 200 73 Cholesterol/HDL Ratio 5.42 AVERAGE High 1-4.44 High Density Lipoprotein 45 mg/dL 40-60 74 Low Density Lipoprotein 120 mg/dL High Less Than 100 75 Triglyceride 396 mg/dL High 40-200 Laboratory test finding 12/16/2010 PTT (Aptt) 25.0 Low 25.15-38.53 Von Willebrand Multimer . () 76 CBC Auto Diff 12/16/2010 Abs Basophils 0 0-0.2 Abs Eosinophils 0.2 0-0.6 Abs Lymphs 2.7 1.0-4.8 Abs Mononuclear 0.7 0-0.8 Absolute Neutrophil Count 5.9 1.5-7.7 Basophil % 0.1 % 0-2 Eosinophil % 2.4 % 0-6 Gran % 61.6 % 38-83 Hematocrit 32 % Low 35-47 Hemoglobin 11.3 g/dL Low 12.0-16.0 Lymph % 28.3 % 20-45 Mean Corpuscular HGB Cone 36 g/dL 32-36 Mean Corpuscular Hemoglob 30 pg 27-31 Mean Corpuscular Volume 85 um3 79-97 Mean Platelet Volume 7.2 um3 Low 7.4-10.4 Mononuclear % 7.6 % 1-9 Platelet Count 353 CUMM 150-450 Red Cell Count 3.71 CUMM Low 4.2-5.4 Redcell Distribution WDTH 13 % 10.5-15 White Blood Count 9.51 CUMM 4.8-10.8 Von Willebrand Panel 12/16/2010 Factor VIII Activity Assay 127 % 55-200 77 Interpretation . () 78 Reviewed By Omayra Horn <See Note> () 79 Ristocetin Cofactor (VWF) 66 % 55-200 80 Von Willebrand Factor Ag 77 % 55-200 81 Protime 12/16/2010 Inr 0.98 0.82-1.17 82 Protime 11.5 SEC 10.2-14.8 83 Manual Differential 10/31/2010 Absolute Neutrophil Count 8.2 Anisocytosis Slight Eosinophil 1 % 0-6 Lymphocyte 29 % 25-47 Monocyte 6 % 0-13 Polysegmented Neutrophil 64 % 38-83 Comp Metabolic Panel 10/31/2010 Albumin 4.2 GM/DL 3.6-5.4 Albumin/Globulin Ratio 1.6 1-3 Alkaline Phosphatase 74 U/L 30-110 Alt (SGPT) 36 U/L 14-54 Anion Gap 9.0 mmol/L 2-11 84 Ast (Sgot) 40 U/L 12-42 BUN 14 mg/dL 6-24 BUN/Creatinine Ratio 23.3 High 8-20 Bilirubin Total 0.7 mg/dL 0.4-1.5 85 Calcium 9.5 mg/dL 8.1-9.9 Chloride 99 mmol/L Low 101-111 Co2 (Carbon Dioxide) 26.0 mmol/L 22-32 Creatinine 0.6 mg/dL 0.50-1.40 Globulin 2.7 GM/DL 2-4 Glucose 82 mg/dL 70-100 One Over Creatinine 1.66 Potassium 4.8 mmol/L 3.5-5.0 Sodium 134 mmol/L Low 135-145 Total Protein 6.9 GM/DL 6.2-8.1 eGFR 140.3 > 60 86 eGFR Non- 109.1 > 60 CBC Auto Diff 10/31/2010 Hematocrit 35 % 35-47 Hemoglobin 12.8 g/dL 12.0-16.0 Mean Corpuscular HGB Cone 36 g/dL 32-36 Mean Corpuscular Hemoglob 32 pg High 27-31 Mean Corpuscular Volume 88 um3 79-97 Mean Platelet Volume 8.6 um3 7.4-10.4 Platelet Count 371 CUMM 150-450 Red Cell Count 4.01 CUMM Low 4.2-5.4 Redcell Distribution WDTH 13 % 10.5-15 White Blood Count 12.9 CUMM High 4.8-10.8 Laboratory test finding 10/31/2010 FSH 8.21 MIU/ML 87 Lutenizing Hormone 11.56 MIU/ML 88 Prolactin 6.93 ng/mL 1.0-25.0 TSH 1.50 MIU/ML 0.34-5.60 1 Pipe Foreman: [id number] E78.5 I10 E66.9 AND Z12.4 3 Note: Persistent reduction for 3 months or more in an eGFR <60 mL/min/1.73 m2 defines CKD. Patients with eGFR values >/=60 mL/min/1.73 m2 may also have CKD if evidence of persistent proteinuria is present. The original MDRD equation for estimated GFR is not valid for patients less than 18 years of age. Additional information may be found at www.kdo[facility].org. 4 Elevated levels of HbA1c suggest the need for more aggressive treatment of glycemia. The [place] [employer] recommends that a primary goal of therapy should be a HbA1c of <7% and that physicians should re-evaluate the treatment regimen in patients with HbA1c values consistently >8%. 5 Reference Guidelines*: Desirable: ........... < 200 mg/dL Borderline High: ..... 200-239 mg/dL High: ................ >=240 mg/dL * The National Cholesterol Education Program (NCEP) 6 Reference Guidelines*: Normal: ............. < 150 mg/dL Borderline High: .... 150-199 mg/dL High: ............... 200-499 mg/dL Very High: .......... > 500 mg/dL * Source: National Cholesterol Education Program (NCEP) 7 Reference Guidelines*: Low HDL: ..... < 40 mg/dL Normal: ..... 40-60 mg/dL Desirable: ... > 60 mg/dL *The National Cholesterol Education Program(NCEP) 8 Reference Guidelines*: Optimal:........... <100 mg/dL Near Optimal....... 100-129 mg/dL Borderline High.... 130-159 mg/dL High............... 160-189 mg/dL Very High.......... >=190 mg/dL * Source: National Cholesterol Education Program (NCEP) 9 R53.83 10 Performed at: [address] [id number] [employer] Assembler: Maury Vee MD, Phone: [phone] Note: Persistent reduction for 3 months or more in an eGFR <60 mL/min/1.73 m2 defines CKD. Patients with eGFR values >/=60 mL/min/1.73 m2 may also have CKD if evidence of persistent proteinuria is present. The original MDRD equation for estimated GFR is not valid for patients less than 18 years of age. Additional information may be found at www.[email or web address]. 12 E78.2 has appt to discuss 13 Reference Guidelines*: Desirable: ........... < 200 mg/dL Borderline High: ..... 200-239 mg/dL High: ................ >=240 mg/dL * The National Cholesterol Education Program (NCEP) 14 Reference Guidelines*: Normal: ............. < 150 mg/dL Borderline High: .... 150-199 mg/dL High: ............... 200-499 mg/dL Very High: .......... > 500 mg/dL * Source: National Cholesterol Education Program (NCEP) 15 Reference Guidelines*: Low HDL: ..... < 40 mg/dL Normal: ..... 40-60 mg/dL Desirable: ... > 60 mg/dL *The National Cholesterol Education Program(NCEP) 16 Reference Guidelines*: Optimal:........... <100 mg/dL Near Optimal....... 100-129 mg/dL Borderline High.... 130-159 mg/dL High............... 160-189 mg/dL Very High.......... >=190 mg/dL * Source: National Cholesterol Education Program (NCEP) 17 Elevated levels of HbA1c suggest the need for more aggressive treatment of glycemia. The [place] [employer] recommends that a primary goal of therapy should be a HbA1c of <7% and that physicians should re-evaluate the treatment regimen in patients with HbA1c values consistently >8%. 18 Note: Persistent reduction for 3 months or more in an eGFR <60 mL/min/1.73 m2 defines CKD. Patients with eGFR values >/=60 mL/min/1.73 m2 may also have CKD if evidence of persistent proteinuria is present. The original MDRD equation for estimated GFR is not valid for patients less than 18 years of age. Additional information may be found at www.[email or web address]. 19 Performed at: [facility] [id number] Cylinder Head Assembler: Maury Vee MD, Phone: [phone] 20 Reference Guidelines*: Desirable: ........... < 200 mg/dL Borderline High: ..... 200-239 mg/dL High: ................ >=240 mg/dL * The National Cholesterol Education Program (NCEP) 21 Reference Guidelines*: Normal: ............. < 150 mg/dL Borderline High: .... 150-199 mg/dL High: ............... 200-499 mg/dL Very High: .......... > 500 mg/dL * Source: National Cholesterol Education Program (NCEP) 22 Reference Guidelines*: Low HDL: ..... < 40 mg/dL Normal: ..... 40-60 mg/dL Desirable: ... > 60 mg/dL *The National Cholesterol Education Program(NCEP) 23 Reference Guidelines*: Optimal:........... <100 mg/dL Near Optimal....... 100-129 mg/dL Borderline High.... 130-159 mg/dL High............... 160-189 mg/dL Very High.......... >=190 mg/dL * Source: National Cholesterol Education Program (NCEP) 24 Elevated levels of HbA1c suggest the need for more aggressive treatment of glycemia. The [place] [employer] recommends that a primary goal of therapy should be a HbA1c of <7% and that physicians should re-evaluate the treatment regimen in patients with HbA1c values consistently >8%. 25 Note: Persistent reduction for 3 months or more in an eGFR <60 mL/min/1.73 m2 defines CKD. Patients with eGFR values >/=60 mL/min/1.73 m2 may also have CKD if evidence of persistent proteinuria is present. The original MDRD equation for estimated GFR is not valid for patients less than 18 years of age. Additional information may be found at www.kdoqi.org. 26 Organism 1 ! ESCHERICHIA COLI Quantity ! > 100,000 CFU/mL Organism 2 ! URETHRAL CHICO Quantity ! 10,000 - 50,000 CFU/mL ESCHERICHIA COLI Target Route Dose M.I.C. RX AB COST ------ ----- -------- ------ -- ------ NITROFURANTOIN <=16 S TRIMETHOPRIM/SULFAMETHOXAZOLE <=20 S AMPICILLIN <=2 S CEFAZOLIN <=4 S AMPICILLIN/SULBACTAM <=2 S CIPROFLOXACIN >=4 R PIPERACILLIN/TAZOBACTAM <=4 S CEFTAZIDIME <=1 S CEFTRIAXONE <=1 S CEFEPIME <=1 S LEVOFLOXACIN >=8 R IMIPENEM <=0.25 S GENTAMICIN <=1 S TOBRAMYCIN <=1 S 27 Reference Guidelines*: Desirable: ........... < 200 mg/dL Borderline High: ..... 200-239 mg/dL High: ................ >=240 mg/dL * The National Cholesterol Education Program (NCEP) 28 Reference Guidelines*: Low HDL: ..... < 40 mg/dL Normal: ..... 40-60 mg/dL Desirable: ... > 60 mg/dL *The National Cholesterol Education Program(NCEP) 29 Reference Guidelines*: Optimal:........... <100 mg/dL Near Optimal....... 100-129 mg/dL Borderline High.... 130-159 mg/dL High............... 160-189 mg/dL Very High.......... >=190 mg/dL * Source: National Cholesterol Education Program ( NCEP) 30 Reference Guidelines*: Normal: ............. < 150 mg/dL Borderline High: .... 150-199 mg/dL High: ............... 200-499 mg/dL Very High: .......... > 500 mg/dL * Source: National Cholesterol Education Program (NCEP) 31 Elevated levels of HbA1c suggest the need for more aggressive treatment of glycemia. The [place] [employer] recommends that a primary goal of therapy should be a HbA1c of <7% and that physicians should re-evaluate the treatment regimen in patients with HbA1c values consistently >8%. 32 Note: Persistent reduction for 3 months or more in an eGFR <60 mL/min/1.73 m2 defines CKD. Patients with eGFR values >/=60 mL/min/1.73 m2 may also have CKD if evidence of persistent proteinuria is present. The original MDRD equation for estimated GFR is not valid for patients less than 18 years of age. Additional information may be found at www.kdoqi.org. 33 Therapeutic target for the treatment of diabetes Mellitus patients is <7% HBA1C, and in selective patients <6.0%.Please refer to [place] [employer] Diabetic care guidelines for further information. 34 Because ethnic data is not always readily available, this report includes an eGFR for both -Americans and non- Americans. The National Kidney Disease Education Program (NKDEP) does not endorse the use of the MDRD equation for patients that are not between the ages of 18 and 70, are , have extremes of body size, muscle mass, or nutritional status, or are non- or non-. According to the National Kidney Foundation, irrespective of diagnosis, the stage of the disease is based on the level of kidney function: Stage Description GFR(mL/min/1.73 m(2)) 1 Kidney damage with normal or decreased GFR 90 2 Kidney damage with mild decrease in GFR 60- 89 3 Moderate decrease in GFR 30-59 4 Severe decrease in GFR 15-29 5 Kidney failure <15 (or dialysis) 35 HDL Interpretation: Undesirable: High Risk: Less than 40 mg/dL Desirable: Low Risk: Greater than 60 mg/dL 36 LDL Interpretation: Low Risk Optimal Level: LDL Less than 100 mg/dL Near or Above Optimal: LDL 100-129 mg/dL Borderline High Risk: LDL 130-159 mg/dL High Risk : LDL 160-189 mg/dL Very High Risk: LDL Greater than 189 mg/dL 37 Therapeutic target for the treatment of diabetes Mellitus patients is <7% HBA1C, and in selective patients <6.0%.Please refer to [place] [employer] Diabetic care guidelines for further information. 38 Because ethnic data is not always readily available, this report includes an eGFR for both -Americans and non- Americans. The National Kidney Disease Education Program (NKDEP) does not endorse the use of the MDRD equation for patients that are not between the ages of 18 and 70, are , have extremes of body size, muscle mass, or nutritional status, or are non- or non-. According to the National Kidney Foundation, irrespective of diagnosis, the stage of the disease is based on the level of kidney function: Stage Description GFR(mL/min/1.73 m(2)) 1 Kidney damage with normal or decreased GFR 90 2 Kidney damage with mild decrease in GFR 60- 89 3 Moderate decrease in GFR 30-59 4 Severe decrease in GFR 15-29 5 Kidney failure <15 (or dialysis) 39 HDL Interpretation: Undesirable: High Risk: Less than 40 mg/dL Desirable: Low Risk: Greater than 60 mg/dL 40 LDL Interpretation: Low Risk Optimal Level: LDL Less than 100 mg/dL Near or Above Optimal: LDL 100-129 mg/dL Borderline High Risk: LDL 130-159 mg/dL High Risk : LDL 160-189 mg/dL Very High Risk: LDL Greater than 189 mg/dL 41 Therapeutic target for the treatment of diabetes Mellitus patients is <7% HBA1C, and in selective patients <6.0%.Please refer to [place] [employer] Diabetic care guidelines for further information. 42 Because ethnic data is not always readily available, this report includes an eGFR for both -Americans and non- Americans. The National Kidney Disease Education Program (NKDEP) does not endorse the use of the MDRD equation for patients that are not between the ages of 18 and 70, are , have extremes of body size, muscle mass, or nutritional status, or are non- or non-. According to the National Kidney Foundation, irrespective of diagnosis, the stage of the disease is based on the level of kidney function: Stage Description GFR(mL/min/1.73 m(2)) 1 Kidney damage with normal or decreased GFR 90 2 Kidney damage with mild decrease in GFR 60- 89 3 Moderate decrease in GFR 30-59 4 Severe decrease in GFR 15-29 5 Kidney failure <15 (or dialysis) 43 -- REFERENCE VALUE -- 25-HYDROXY D TOTAL (D2+D3) Optimum levels in the normal population are 25-80 Test Performed by: [address] [address] [facility] Room Working Supervisor: Momo Morrison III, M.D. 44 HDL Interpretation: Undesirable: High Risk: Less than 40 mg/dL Desirable: Low Risk: Greater than 60 mg/dL 45 LDL Interpretation: Low Risk Optimal Level: LDL Less than 100 mg/dL Near or Above Optimal: LDL 100-129 mg/dL Borderline High Risk: LDL 130-159 mg/dL High Risk : LDL 160-189 mg/dL Very High Risk: LDL Greater than 189 mg/dL 46 HDL Interpretation: Undesirable: High Risk: Less than 40 MG/DL Desirable: Low Risk: Greater than 60 MG/DL 47 LDL Interpretation: Low Risk Optimal Level: LDL Less than 100 MG/DL Near or Above Optimal: LDL 100-129 MG/DL Borderline High Risk: LDL 130-159 MG/DL High Risk : LDL 160-189 MG/DL Very High Risk: LDL Greater than 189 MG/DL 48 Because ethnic data is not always readily available, this report includes an eGFR for both -Americans and non- Americans. The National Kidney Disease Education Program (NKDEP) does not endorse the use of the MDRD equation for patients that are not between the ages of 18 and 70, are , have extremes of body size, muscle mass, or nutritional status, or are non- or non-. According to the National Kidney Foundation, irrespective of diagnosis, the stage of the disease is based on the level of kidney function: Stage Description GFR(mL/min/1.73 m(2)) 1 Kidney damage with normal or decreased GFR 90 2 Kidney damage with mild decrease in GFR 60- 89 3 Moderate decrease in GFR 30-59 4 Severe decrease in GFR 15-29 5 Kidney failure <15 (or dialysis) 49 Therapeutic target for the treatment of diabetes Mellitus patients is <7% HBA1C, and in selective patients <6.0%.Please refer to [place] [employer] Diabetic care guidelines for further information. 50 CHOLESTEROL INTERPRETATION: Desirable: Less than 200 MG/DL Borderline-High Risk: 200-239 MG/DL High-Risk: 240 MG/DL and over 51 HDL INTERPRETATION: Undesirable: High Risk: Less than 40 MG/DL Desirable: Low Risk: Greater than 60 MG/DL 52 LDL INTERPRETATION: Low Risk Optimal Level: LDL Less than 100 MG/DL Near or Above Optimal: LDL 100-129 MG/DL Borderline High Risk: LDL 130-159 MG/DL High Risk : LDL 160-189 MG/DL Very High Risk: LDL Greater than 189 MG/DL 53 CHOLESTEROL INTERPRETATION: Desirable: Less than 200 MG/DL Borderline-High Risk: 200-239 MG/DL High-Risk: 240 MG/DL and over 54 HDL INTERPRETATION: Undesirable: High Risk: Less than 40 MG/DL Desirable: Low Risk: Greater than 60 MG/DL 55 LDL INTERPRETATION: Low Risk Optimal Level: LDL Less than 100 MG/DL Near or Above Optimal: LDL 100-129 MG/DL Borderline High Risk: LDL 130-159 MG/DL High Risk : LDL 160-189 MG/DL Very High Risk: LDL Greater than 189 MG/DL 56 Anion gap measurement may be of limited value in the presence of any alkalosis, especially in a combined acid base disorder. . 57 A metabolite of Naproxen, O-desmethylnaproxen, has been shown to interfere with the [place] method for measuring total bilirubin. Samples from patients who have taken Naproxen have shown spurious elevation in total bilirubin levels. 58 Because ethnic data is not always readily available, this report includes an eGFR for both -Americans and non- Americans. The National Kidney Disease Education Program (NKDEP) does not endorse the use of the MDRD equation for patients that are not between the ages of 18 and 70, are , have extremes of body size, muscle mass, or nutritional status, or are non- or non-. According to the National Kidney Foundation, irrespective of diagnosis, the stage of the disease is based on the level of kidney function: Stage Description GFR(mL/min/1.73 m(2)) 1 Kidney damage with normal or decreased GFR 90 2 Kidney damage with mild decrease in GFR 60- 89 3 Moderate decrease in GFR 30-59 4 Severe decrease in GFR 15-29 5 Kidney failure <15 (or dialysis) 59 THERAPEUTIC TARGET FOR THE TREATMENT OF DIABETES MELLITUS PATIENTS IS <7% HBA1C, AND IN SELECTIVE PATIENTS <6.0%. PLEASE REFER TO [place] [employer] DIABETIC CARE GUIDELINES FOR FURTHER INFORMATION. 60 THERAPEUTIC TARGET FOR THE TREATMENT OF DIABETES MELLITUS PATIENTS IS <7% HBA1C, AND IN SELECTIVE PATIENTS <6.0%. PLEASE REFER TO [place] [employer] DIABETIC CARE GUIDELINES FOR FURTHER INFORMATION. 61 Anion gap measurement may be of limited value in the presence of any alkalosis, especially in a combined acid base disorder. . 62 A metabolite of Naproxen, O-desmethylnaproxen, has been shown to interfere with the [place] method for measuring total bilirubin. Samples from patients who have taken Naproxen have shown spurious elevation in total bilirubin levels. 63 Because ethnic data is not always readily available, this report includes an eGFR for both -Americans and non- Americans. The National Kidney Disease Education Program (NKDEP) does not endorse the use of the MDRD equation for patients that are not between the ages of 18 and 70, are , have extremes of body size, muscle mass, or nutritional status, or are non- or non-. According to the National Kidney Foundation, irrespective of diagnosis, the stage of the disease is based on the level of kidney function: Stage Description GFR(mL/min/1.73 m(2)) 1 Kidney damage with normal or decreased GFR 90 2 Kidney damage with mild decrease in GFR 60- 89 3 Moderate decrease in GFR 30-59 4 Severe decrease in GFR 15-29 5 Kidney failure <15 (or dialysis) 64 CHOLESTEROL INTERPRETATION: Desirable: Less than 200 MG/DL Borderline-High Risk: 200-239 MG/DL High-Risk: 240 MG/DL and over 65 HDL INTERPRETATION: Undesirable: High Risk: Less than 40 MG/DL Desirable: Low Risk: Greater than 60 MG/DL 66 LDL INTERPRETATION: Low Risk Optimal Level: LDL Less than 100 MG/DL Near or Above Optimal: LDL 100-129 MG/DL Borderline High Risk: LDL 130-159 MG/DL High Risk : LDL 160-189 MG/DL Very High Risk: LDL Greater than 189 MG/DL 67 -- REFERENCE VALUE -- 25-HYDROXY D TOTAL (D2+D3) Optimum levels in the normal population are 25-80 Test Performed by: [facility] Dpt of Lab Med and Pathology [address] [place] [address] [facility] Room Working Supervisor: Momo Morrison III, M.D. 68 THERAPEUTIC TARGET FOR THE TREATMENT OF DIABETES MELLITUS PATIENTS IS <7% HBA1C, AND IN SELECTIVE PATIENTS <6.0%. PLEASE REFER TO [place] [employer] DIABETIC CARE GUIDELINES FOR FURTHER INFORMATION. 69 Basophilia % 1+ Anisocytosis 70 Anion gap measurement may be of limited value in the presence of any alkalosis, especially in a combined acid base disorder. . 71 A metabolite of Naproxen, O-desmethylnaproxen, has been shown to interfere with the Jendrassik-[place]io method for measuring total bilirubin. Samples from patients who have taken Naproxen have shown spurious elevation in total bilirubin levels. 72 Because ethnic data is not always readily available, this report includes an eGFR for both -Americans and non- Americans. The National Kidney Disease Education Program (NKDEP) does not endorse the use of the MDRD equation for patients that are not between the ages of 18 and 70, are , have extremes of body size, muscle mass, or nutritional status, or are non- or non-. According to the National Kidney Foundation, irrespective of diagnosis, the stage of the disease is based on the level of kidney function: Stage Description GFR(mL/min/1.73 m(2)) 1 Kidney damage with normal or decreased GFR 90 2 Kidney damage with mild decrease in GFR 60- 89 3 Moderate decrease in GFR 30-59 4 Severe decrease in GFR 15-29 5 Kidney failure <15 (or dialysis) 73 CHOLESTEROL INTERPRETATION: Desirable: Less than 200 MG/DL Borderline-High Risk: 200-239 MG/DL High-Risk: 240 MG/DL and over 74 HDL INTERPRETATION: Undesirable: High Risk: Less than 40 MG/DL Desirable: Low Risk: Greater than 60 MG/DL 75 LDL INTERPRETATION: Low Risk Optimal Level: LDL Less than 100 MG/DL Near or Above Optimal: LDL 100-129 MG/DL Borderline High Risk: LDL 130-159 MG/DL High Risk : LDL 160-189 MG/DL Very High Risk: LDL Greater than 189 MG/DL 76 The distribution of plasma von Willebrand factor multimers is normal. -- REFERENCE VALUE -- Descriptive report Analyte Specific Reagent This test was developed and its performance characteristics determined by Laboratory Medicine and Pathology, [facility]. It has not been cleared or approved by the U.S. Food and Drug Administration. Test Performed by: [facility] Dpt of Lab Med and Pathology [address] [place] [address] [facility] Room Working Supervisor: Momo Morrison III, M.D. 77 Test Performed by: [facility] Dpt of Lab Med and Pathology [address] [place] [address] [facility] Room Working Supervisor: Momo Morrison III, M.D. 78 01/10/11 1727: INTERP previously reported as: . No laboratory evidence of von Willebrand's disease based on normal results of factor VIII activity, von Willebrand factor activity and von Willebrand factor antigen. Note: von Willebrand factor antigen and activity and/or factor VIII may be increased above baseline levels by acute or chronic inflammation, stress or adrenergic stimuli, or estrogen and oral contraceptive therapy, or liver disease. Recent administration of desmopressin or von Willebrand factor concentrate may mask the diagnosis of von Willebrand's disease. Suggest clinical correlation. Interpretation not reviewed by physician. Test Performed by: [facility] Dpt of Lab Med and Pathology [address] [place] [address] Cis[facility] Room Working Supervisor: Momo Morrison III, M.D. REVISED REPORT IMPRESSION: No laboratory evidence of von Willebrand disease (VWD); see comments and suggest clinical correlation. If VWD is strongly suspected, consider repeat testing in the absence of conditions associated with elevation of baseline von Willebrand factor (VWF) and coagulation factor VIII; see additional comments below. COMMENTS: Von Willebrand factor (VWF) antigen and VWF activity (latex immunoassay screen) levels are normal and adequately concordant (77% and 69% respectively), and coagulation factor VIII activity is higher and normal (127%). Supplemental VWF ristocetin cofactor activity assay demonstrates value concordant with VWF activity and antigen measurements (66%). Supplemental VWF multimer analysis demonstrates normal distribution, consistent either with type 1 von Willebrand disease (VWD) or a normal state. Note: Apparently normal individuals of blood group "O" may have somewhat lower factor VIII and von Willebrand factor (VWF) than individuals of other blood groups, such that (for example) those of group "O" may have VWF antigen as low as 40-50%, whereas normals of nongroup "O" generally have VWF antigen above 60-70%. Suggest clinical correlation. Note: Von Willebrand factor (VWF) antigen and VWF latex immunoassay activity and/or factor VIII may be increased above baseline levels by acute or chronic inflammation, stress or adrenergic stimuli, or estrogen and oral contraceptive (OCP) therapy, liver disease. Note: Factor VIII activity in frozen-thawed plasma may be 10- 20% lower than in fresh plasma, or can be even lower if specimen processing, storage, or transportation are suboptimal. PREVIOUSLY REPORTED DATA:(REPORTED 2010 4:06 PM) No laboratory evidence of von Willebrand's disease based on normal results of factor VIII activity, von Willebrand factor activity and von Willebrand factor antigen. Note: von Willebrand factor antigen and activity and/or factor VIII may be increased above baseline levels by acute or chronic inflammation, stress or adrenergic stimuli, or estrogen and oral contraceptive therapy, or liver disease. Recent administration of desmopressin or von Willebrand factor concentrate may mask the diagnosis of von Willebrand's disease. Suggest clinical correlation. Interpretation not reviewed by physician. 79 Darlene Amaya M.D. REVISED REPORT PREVIOUSLY REPORTED DATA:(REPORTED 12/18 4:06 PM) DNR Test Performed by: [facility] Dpt of Lab Med and Pathology [address] [place] [address] [facility]is[facility] Room Working Supervisor: Momo Morrison III, M.D. 80 Test Performed by: [facility] Dpt of Lab Med and Pathology [address] [place] [address] [facility]is[facility] Room Working Supervisor: Momo Morrison III, M.D. 81 Test Performed by: [facility] Dpt of Lab Med and Pathology [address] [place] [address] Cis[facility] Room Working Supervisor: Momo Morrison III, M.D. 82 Recommended INR for Patients on Oral Anticoagulants Prophylaxis 2.0 - 3.0 Treatment of thrombosis 2.0 - 3.0 Prevention of embolism 2.0 - 3.0 Prevention of embolism from prosthetic heart valves 2.5 - 3.5 83 DIAGNOSIS,TREATMENT,AND THERAPY MUST BE BASED ON THE INR VALUE ALONE. 84 Anion gap measurement may be of limited value in the presence of any alkalosis, especially in a combined acid base disorder. . 85 A metabolite of Naproxen, O-desmethylnaproxen, has been shown to interfere with the [place] method for measuring total bilirubin. Samples from patients who have taken Naproxen have shown spurious elevation in total bilirubin levels. 86 Because ethnic data is not always readily available, this report includes an eGFR for both -Americans and non- Americans. The National Kidney Disease Education Program (NKDEP) does not endorse the use of the MDRD equation for patients that are not between the ages of 18 and 70, are , have extremes of body size, muscle mass, or nutritional status, or are non- or non-. According to the National Kidney Foundation, irrespective of diagnosis, the stage of the disease is based on the level of kidney function: Stage Description GFR(mL/min/1.73 m(2)) 1 Kidney damage with normal or decreased GFR 90 2 Kidney damage with mild decrease in GFR 60- 89 3 Moderate decrease in GFR 30-59 4 Severe decrease in GFR 15-29 5 Kidney failure <15 (or dialysis) 87 NORMAL RANGE MALES 1 - 20 NORMALLY MENSTRUATING FEMALES - Follicular Phase 3 - 9 - Mid-Cycle Peak 4 - 23 - Luteal Phase 1 - 6 POSTMENOPAUSAL FEMALES 16 - 114 . 88 NORMAL RANGE MALES 2 - 12 NORMALLY MENSTRUATING FEMALES - Follicular Phase 1 - 18 - Mid-Cycle Peak 24 - 105 - Luteal Phase 0.6 - 20 POSTMENOPAUSAL FEMALES 15 - 62 . Procedures Date CPT Code Description Status 11/23/2017 77935 Bronchospasm Provocation Evaluation Multi Spirometric Completed Determinati 11/23/2017 65098 Spirometry Completed 08/28/201700537 Aspiration/Injection joint Completed intermediate(wrist/ankle/elbow/olbursa 06/29/2017 26587 Remove Impacted Cerumen Completed 05/25/2017 06314 Remove Impact Cerumen Irrigati Completed 05/11/2017 59772 Pressurized/Non-Pressurized Inhalation Treatment,Acute Completed Obstructio 03/11/2017 78609 Pulse Oximetry Completed 03/11/2017 89506 Pressurized/Non-Pressurized Inhalation Treatment,Acute Completed Obstructio 07/09/2015 Mammogram Completed 07/02/2015 31655 Remove Impact Cerumen Irrigati Completed 08/01/2014 77341 Spirometry Completed 05/19/2013 42936 Pressurized/Non-Pressurized Inhalation Treatment,Acute Completed Obstructio 05/06/2013 36216 Pulse Oximetry Completed 05/02/2013 59150 Pulse Oximetry Completed 02/14/2013 27483 Pulse Oximetry Completed 02/11/2013 90060 Pulse Oximetry Completed 02/11/2013 47532 Pressurized/Non-Pressurized Inhalation Treatment,Acute Completed Obstructio 07/17/2011 13400 Pulse Oximetry Completed 06/16/2011 70738 Pulse Oximetry Completed 01/02/2011 32448 Anesthesia, Hysteroscopy, Hystersalpingography Completed 12/31/2010 11881 EKG Interpretation And Report Only Completed 03/08/2010 62835 Pulse Oximetry Completed 12/21/2009 87685 Pulse Oximetry Completed 05/30/2009 97966 Pulse Oximetry Completed 05/30/2009 46007 EKG-Tracing And Report Completed 01/02/2009 82859 Pulse Oximetry Completed 01/02/2009 18884 Pressurized/Non-Pressurized Inhalation Treatment,Acute Completed Obstructio 05/12/2008 62786 Remove Impacted Cerumen Completed 07/01/2007 91829 Remove Impacted Cerumen Completed Encounters Type Date Location Provider CPT E/M Dx Office Visit 10/06/2017 10:00[place] [address] Z00.00 J44.9 E66.9 I10 E78.5 Z12.31 Z12.11 H61.22 Z12.4 Z23 Office Visit 09/23/2017 11:00[place] [address] J06.9 J30.9 H69.92 I10 Office Visit 08/28/2017 8:30a Orthopaedic Office Trisha Bergeron 28593 M70.22 [facility] M25.522 Office Visit 08/20/2017 10:15a Orthopaedic Office Trisha Bergeron 07636 M25.522 [facility] M70.22 Office Visit 07/29/2017 2:15p [place] [address] H60.92 Office Visit 06/29/2017 9:00[place] [address] J44.1 F17.210 H61.22 Office Visit 06/17/2017 3:45p [place] [address] J01.00 F17.210 J44.1 Office Visit 06/09/2017 11:45[place] [address] J06.9 F17.210 H61.22 Office Visit 05/25/2017 10:15[place] [address] J44.1 H61.22 Office Visit 05/18/2017 9:45a [place] [address] J44.1 J01.00 I10 F17.210 Office Visit 05/11/2017 10:15a [place] [address] J44.1 J01.00 F17.210 Office Visit 04/20/2017 11:00[place] [address] J44.1 F17.218 R53.83 Office Visit 03/23/2017 8:45a [place] [address] J44.1 F17.218 Office Visit 03/16/2017 9:45a [place] [address] J44.1 F17.218 I10 R05 Office Visit 03/11/2017 11:15a Family Vladimir Bullard FNP 19649 J44.1 F17.218 Z71.6 Office Visit 02/06/2017 11:00a Family Medicine Vladimir Horn FNP 81131 R05 F17.218 J44.9 Z71.6 E66.9 R03.0 Z68.30 Office Visit 2017 10:15a Family Medicine Family 69287 I10 Office Visit 10/10/2016 10:30a Family Medicine Vladimir Horn FNP 42510 Z00.00 E78.2 R73.9 F17.218 J44.9 E66.3 H61.22 Office Visit 10/03/2016 9:30a Family Vladimir Bullard FNP 11654 E78.2 R73.9 F17.218 Z71.6 Office Visit 11/30/2015 10:15a Family Vladimir Bullard FNP 17028 J01.80 J44.9 F17.210 H61.22 R53.83 Office Visit 07/02/2015 9:00a [facility] Justina Vladimir [facility] [address] J44.9 F17.210 Z12.39 H61.22 Office Visit 03/14/2015 11:45a [facility] Nany Horton M.D. 26994 H92.02 F17.210 Z71.6 Office Visit 11/17/2014 9:00a [facility] Justina Yadikyralinda [facility] [address] J44.9 F17.218 R35.0 R73.9 Z23 Office Visit 08/01/2014 11:15a [facility] Justina Yadijoy [facility] [address] 496 305.1 Plan of Care Future Appointment(s):07/30/2018 9:00 am - Yohana Hogan PA at [id number]/ 05/2018 - Kishor Polanco MDJ44.9 Chronic obstructive pulmonary disease, unspecifiedFollow up:6 [id number] Nicotine dependence, cigarettes, [id number] Tobacco abuse counseling
[2017-12-29 07:37] VITALS: BP 148/88
--- NOTE | 2017-12-29 07:46 | UC ---
Abdominal Pain Female HPI - HPI Summary HPI Summary: nausea / vomiting and diarrhea x 1 day abdominal cramping , no radiation of the pain worse when eating, better when NPO no fever, no chills, no urinary sx - History of Current Complaint Chief Complaint: UCGI Stated Complaint: DIARRHEA,VOMITING Time Seen by Provider: 12/29/17 07:31 Hx Obtained From: Patient Hx Last Menstrual Period: ablation ?: No Onset/Duration: Gradual Onset, Lasting Days - 1, Still Present Timing: Constant Severity Initially: Moderate Severity Currently: Moderate Pain Intensity: 7 Location: Diffuse Radiates: No Character: Cramping Aggravating Factor(s): Food Alleviating Factor(s): NPO Associated Signs and Symptoms: Positive: Nausea, Vomiting, Diarrhea. Negative: Fever, Cough, Chest Pain, Dizzy, Back Pain, Constipation, Blood in Stool, Urinary Symptoms, Decreased Appetite, Vaginal Bleeding, Vaginal Discharge Allergies/Adverse Reactions: Allergies Allergy/AdvReac Type Severity Reaction Status Date / Time Penicillins Allergy Unknown Verified 12/29/17 07:33 Reaction Details Home Medications: Home Medications Lovastatin (NF) [Mevacor (NF)] 10 mg PO DAILY 12/29/17 [History Confirmed ] Omeprazole CAP* [Prilosec CAP* 20 MG] 20 mg PO DAILY 12/29/17 [History Confirmed 12/29/17] PMH/Surg Hx/FS Hx/Imm Hx Cardiovascular History: Hypertension Respiratory History: COPD, Asthma Psychological History: Anxiety, Depression - Surgical History Surgical History: Yes Surgery Procedure, Year, and Place: t/a, ear tubes as child. Pelvic mesh. carpal tunnel x3 - Family History Known Family History: Positive: Hypertension - Social History Alcohol Use: Occasionally Substance Use Type: None Smoking Status (MU): Heavy Every Day Tobacco Smoker Type: Cigarettes Amount Used/How Often: 1 PPD Length of Time of Smoking/Using Tobacco: Since Age 20 Household Exposure Type: Cigarettes - Immunization History Most Recent Influenza Vaccination: did not have one this year Review of Systems Constitutional: Negative Skin: Negative Eyes: Negative ENT: Negative Respiratory: Negative Gastrointestinal: Vomiting, Diarrhea, Nausea Genitourinary: Negative Is Patient Immunocompromised?: No All Other Systems Reviewed And Are Negative: Yes Physical Exam Triage Information Reviewed: Yes Appearance: Well-Appearing, No Pain Distress, Well-Nourished Vital Signs: Initial Vital Signs Temp 98.1 F 12/29/17 07:31 Pulse 87 12/29/17 07:31 Resp 16 12/29/17 07:31 BP 148/88 12/29/17 07:31 Pulse Ox 98 12/29/17 07:31 Vital Signs Reviewed: Yes ENT Exam: Normal ENT: Positive: Normal ENT inspection, Hearing grossly normal, Pharynx normal Neck: Positive: Supple, Nontender, No Lymphadenopathy Respiratory: Positive: Chest non-tender, Lungs clear, Normal breath sounds Cardiovascular: Positive: RRR, No Murmur, Pulses Normal Abdomen Description: Positive: Nontender, No Organomegaly, Soft. Negative: CVA Tenderness (R), CVA Tenderness (L), Distended, Guarding Bowel Sounds: Positive: Present Skin Exam: Normal Abd Pain Female Course/Dx - Differential Dx/Diagnosis Provider Diagnoses: gastroenteritis Discharge - Sign-Out/Discharge Documenting (check all that apply): Patient Departure All imaging exams completed and their final reports reviewed: No Studies - Discharge Plan Condition: Stable Disposition: HOME Patient Education Materials: Gastroenteritis (ED) Forms: *Work Release Referrals: Althea Lemons PA [Primary Care Provider] - If Needed - Billing Disposition and Condition Condition: STABLE Disposition: Home
== END 2017-12-29 07:45 | disposition home or self-care (01) ==
LOC: UCCORT 07:22
DX: K52.9 Noninfective gastroenteritis and colitis, unspecified (principal); I10 Essential (primary) hypertension; F17.210 Nicotine dependence, cigarettes, uncomplicated
CPT/HCPCS: 99211; G0463

== ENCOUNTER 2019-02-17 09:27 | Emergency (ER) | payer OTHER ==
[2019-02-17 10:11] VITALS: BP 130/78
--- NOTE | 2019-02-17 10:28 | UC ---
Respiratory Complaint HPI - HPI Summary HPI Summary: Pt presents with c/o sinus congestion , cough, wheezing, and sinus pressure and pain X 1 day. Pt has PMH of copd and is a current every day smoker. - History of Current Complaint Chief Complaint: UCRespiratory Stated Complaint: SINUS COMPLAINT,COUGH Time Seen by Provider: 02/17/19 10:21 Hx Obtained From: Patient Hx Last Menstrual Period: ablation ?: No Onset/Duration: Sudden Onset, Lasting Days, Still Present, Worse Since - onset Timing: Constant Severity Initially: Moderate Severity Currently: Moderate Pain Intensity: 7 Character: Cough: Nonproductive Aggravating Factors: Exertion, Deep Breaths, Recumbent Position Alleviating Factors: Nothing Associated Signs And Symptoms: Positive: Wheezing, Nasal Congestion, Sinus Discomfort - Risk Factors Pulmonary Embolism Risk Factors: Smoking Cardiac Risk Factors: Hypertension, Smoking Pseudomonas Risk Factors: Chronic Lung Disease Tuberculosis Risk Factors: Smoking - Allergies/Home Medications Allergies/Adverse Reactions: Allergies Allergy/AdvReac Type Severity Reaction Status Date / Time Penicillins Allergy Unknown Verified 02/17/19 10:02 Reaction Details Home Medications: Home Medications Rosuvastatin Calcium 20 mg PO DAILY 02/17/19 [History Confirmed 02/17/19] PMH/Surg Hx/FS Hx/Imm Hx Previously Healthy: Yes Cardiovascular History: Cardiac Disease, Hypertension Respiratory History: COPD - Surgical History Surgical History: Yes Surgery Procedure, Year, and Place: t/a, ear tubes as child. Pelvic mesh. carpal tunnel x3, uterine ablasion - Family History Known Family History: Positive: Hypertension - Social History Occupation: Employed Full-time Lives: With Family Alcohol Use: Occasionally Substance Use Type: None Smoking Status (MU): Heavy Every Day Tobacco Smoker Type: Cigarettes Amount Used/How Often: 1 PPD Length of Time of Smoking/Using Tobacco: Since Age 20 Household Exposure Type: Cigarettes - Immunization History Most Recent Influenza Vaccination: did not have one this year Vaccination Up to Date: No Review of Systems All Other Systems Reviewed And Are Negative: Yes Constitutional: Positive: Chills, Fatigue Skin: Positive: Negative Eyes: Positive: Negative ENT: Positive: Sinus Congestion, Sinus Pain/Tenderness Respiratory: Positive: Cough Cardiovascular: Positive: Negative Gastrointestinal: Positive: Negative Genitourinary: Positive: Negative Motor: Positive: Negative Neurovascular: Positive: Negative Musculoskeletal: Positive: Negative Neurological: Positive: Headache Psychological: Positive: Negative Is Patient Immunocompromised?: No Physical Exam Triage Information Reviewed: Yes Appearance: Ill-Appearing Vital Signs: Initial Vital Signs Temp 98.2 F 02/17/19 10:07 Pulse 87 02/17/19 10:07 Resp 20 02/17/19 10:07 BP 130/78 02/17/19 10:07 Pulse Ox 97 02/17/19 10:07 Vital Signs Reviewed: Yes Eye Exam: Normal ENT: Positive: Nasal congestion, Sinus tenderness Dental Exam: Normal Neck exam: Normal Respiratory: Positive: Decreased breath sounds, Wheezing Cardiovascular Exam: Normal Musculoskeletal Exam: Normal Neurological Exam: Normal Psychological Exam: Normal Skin Exam: Normal Respiratory Course/Dx - Differential Dx/Diagnosis Differential Diagnosis/HQI/PQRI: Bronchitis, Exacerbation Of COPD, Influenza, Sinusitis Provider Diagnosis: Sinusitis, Wheezing on both sides of chest Discharge ED - Sign-Out/Discharge Documenting (check all that apply): Patient Departure All imaging exams completed and their final reports reviewed: No Studies - Discharge Plan Condition: Stable Disposition: HOME Prescriptions: Azithromycin TAB* [Zithromax TAB (Z-ABIMAEL) 250 mg #6 tabs] 2 tab PO .TODAY, THEN 1 DAILY #1 abimael predniSONE TAB* [Deltasone 10 MG TAB*] 30 mg PO DAILY #12 tab Patient Education Materials: Antitussive/Expectorant (By mouth), Sinusitis (ED) , Wheezing (ED) Forms: *Work Release Referrals: Jan Gonzalez PA [Primary Care Provider] - If Needed Additional Instructions: To help manage your symptoms, you can take Coricidin brand or its generic equivalent. Please always check with your PCP or a pharmacist to make sure there is not contraindication of your medications - Billing Disposition and Condition Condition: STABLE Disposition: Home - Attestation Statements Provider Attestation: Per institutional requirements, I have reviewed the chart, however, I was not consulted specifically or made aware of this patient by the midlevel provider. I did not personally evaluate, interact with , or disposition this patient.
== END 2019-02-17 10:38 | disposition home or self-care (01) ==
LOC: UCCORT 09:27
DX: J32.9 Chronic sinusitis, unspecified (principal); J44.9 Chronic obstructive pulmonary disease, unspecified; R06.2 Wheezing; I10 Essential (primary) hypertension; F17.210 Nicotine dependence, cigarettes, uncomplicated; Z88.0 Allergy status to penicillin
CPT/HCPCS: 99212; G0463

== ENCOUNTER 2022-05-05 07:22 | Inpatient (IN) ==
[2022-05-05] MEDS ORDERED: Chlorhexidine MOUTHWASH 0.12% 15 ML UDC ONE (07:51)
[2022-05-05] MEDS ORDERED: ceFAZolin 2 GM in NS PREMIX 2 GM/100 ML BAG IVPB ONE (07:54)
[2022-05-05] MEDS ORDERED: HYDROmorphone 1 MG/1 ML SYRINGE IV PRN (08:12)
[2022-05-05] MEDS ORDERED: Clindamycin 900 MG/D5W BAG 900 MG/50 ML BAG IVPB ONE (08:12)
[2022-05-05] MEDS ORDERED: Naloxone 0.4 mg VIAL 0.4 mg/ml 1 ml VIAL IV PRN (08:12)
[2022-05-05] MEDS ORDERED: Prochlorperazine 5 mg/ml 2 ml VIAL (10 mg) IV PRN (08:12)
[2022-05-05] MEDS ORDERED: fentaNYL 100 mcg/2 ml 50 MCG/ML VIAL IV PRN (08:12)
[2022-05-05] MEDS ORDERED: Metoclopramide 5 MG/ML VIAL (10 mg) ONE (08:25)
[2022-05-05] MEDS ORDERED: Propofol 10 MG/ML 20 ML BTL ONE (08:25)
[2022-05-05] MEDS ORDERED: Acetaminophen IV 1 GM/100ML 1,000 MG/100 ML BAG IV ONE (08:25)
[2022-05-05] MEDS ORDERED: Ondansetron 4 mg VIAL 2 MG/ML 2 ml VIAL ONE (08:25)
[2022-05-05] MEDS ORDERED: Dexamethasone IV 4 MG/ML VIAL 1 ml VIAL ONE (08:25)
[2022-05-05] MEDS ORDERED: Rocuronium 50 mg VIAL 10 mg/ml 5 ml VIAL (50 mg) ONE ×2 (08:26→10:58)
[2022-05-05] MEDS ORDERED: fentaNYL 250 mcg/5 ml 50 MCG/ML 5 ml VIAL (250 MCG) ONE (08:26)
[2022-05-05] MEDS ORDERED: HYDROmorphone 0.5 MG/0.5 ML SYRINGE ONE ×2 (08:26→11:00)
[2022-05-05] MEDS ORDERED: ceFAZolin VIAL VIAL ONE (08:49)
[2022-05-05] MEDS ORDERED: Gelfoam Sponge SIZE 100 SPONGE ONE (08:49)
[2022-05-05] MEDS ORDERED: Lidocaine 1% w EPI 1:200,000 SDV 30 ML VIAL ONE (09:21)
[2022-05-05] MEDS ORDERED: Thrombin 5,000 UNITS 1 APPLIC KIT - topical use - TOPICAL ONE (09:21)
[2022-05-05] MEDS ORDERED: Magnesium Hydroxide LIQ 30 ML UDC PO PRN (12:03)
[2022-05-05] MEDS ORDERED: Ondansetron 4 mg VIAL 2 MG/ML 2 ml VIAL IV PRN (12:03)
[2022-05-05] MEDS ORDERED: LEVALBUTEROL 1.25 MG/3 ML INH PRN (12:08)
[2022-05-05] MEDS ORDERED: Lactated Ringers 1000 ml BAG 1,000 ML IV SCH (13:00)
[2022-05-05] MEDS ORDERED: fentaNYL 100 mcg/2 ml 50 MCG/ML VIAL ONE (13:08)
[2022-05-05] MEDS ORDERED: Nicotine PATCH 21 MG/24 HR PATCH TRANSDERM SCH (14:45)
[2022-05-05] MEDS: HYDROcodone/ACETAMIN 5/325 mg TAB PO PRN ×3 (14:48→23:35)
[2022-05-05] MEDS: PTO: Omeprazole 20 mg CAP (NF) PO SCH (16:00)
[2022-05-05] MEDS ORDERED: Mometasone/Formoter 200/5 MDI INH SCH (19:00)
[2022-05-05] MEDS: Fluticasone-Salmeterol 250-50 DISKUS NF INH SCH (20:00)
[2022-05-06] MEDS: HYDROcodone/ACETAMIN 5/325 mg TAB PO PRN ×4 (03:26→18:47)
[2022-05-06] MEDS: Nicotine PATCH 21 MG/24 HR PATCH TRANSDERM SCH (06:31)
[2022-05-06] MEDS: NON FORMULARY MED (Potassium 99 mg Tablet) PO SCH (09:30)
[2022-05-06] MEDS: Fluticasone NASAL SPRAY 50MCG 16 gm SPRAY BTL BOTH NARES SCH (09:31)
[2022-05-06] MEDS: PTO: Omeprazole 20 mg CAP (NF) PO SCH ×2 (09:32→15:24)
[2022-05-06] MEDS: Fluticasone-Salmeterol 250-50 DISKUS NF INH SCH ×2 (09:34→22:36)
[2022-05-06] MEDS ORDERED: Nicotine GUM 2MG FRUIT FLAVOR PO PRN (22:07)
[2022-05-07] MEDS: HYDROcodone/ACETAMIN 5/325 mg TAB PO PRN ×4 (02:40→20:40)
[2022-05-07] MEDS: Nicotine PATCH 21 MG/24 HR PATCH TRANSDERM SCH (04:58)
[2022-05-07] MEDS: NON FORMULARY MED (Potassium 99 mg Tablet) PO SCH (07:31)
[2022-05-07] MEDS: Fluticasone-Salmeterol 250-50 DISKUS NF INH SCH ×2 (08:40→21:00)
[2022-05-07] MEDS: PTO: Omeprazole 20 mg CAP (NF) PO SCH ×2 (08:40→16:00)
[2022-05-07] MEDS: Fluticasone NASAL SPRAY 50MCG 16 gm SPRAY BTL BOTH NARES SCH (08:41)
[2022-05-08] MEDS: HYDROcodone/ACETAMIN 5/325 mg TAB PO PRN ×3 (00:56→10:45)
[2022-05-08] MEDS: Nicotine PATCH 21 MG/24 HR PATCH TRANSDERM SCH (06:00)
[2022-05-08 06:52] VITALS: BP 98/74
[2022-05-08] MEDS: NON FORMULARY MED (Potassium 99 mg Tablet) PO SCH (07:58)
[2022-05-08] MEDS: Fluticasone-Salmeterol 250-50 DISKUS NF INH SCH (08:02)
[2022-05-08] MEDS: Fluticasone NASAL SPRAY 50MCG 16 gm SPRAY BTL BOTH NARES SCH (08:02)
[2022-05-08] MEDS: PTO: Omeprazole 20 mg CAP (NF) PO SCH (08:02)
== END 2022-05-08 10:50 | disposition home or self-care (01) | DRG 320 ==
LOC: SSU 07:22 → OR 07:22
PROVIDERS: ADMIT Neurological Surgery; ATTEND Neurological Surgery